=== PATIENT | female | born 1955 | race Caucasian/White ===

== ENCOUNTER 2017-01-22 16:03 | Inpatient (IN) ==
[2017-01-22] MEDS ORDERED: FUROSEMIDE 100 MG/10 ML VIAL IV STA (16:38)
[2017-01-22] MEDS ORDERED: methylPREDNISolone SOD SUC 125 MG/2 ML VIAL IV STA (16:38)
--- NOTE | 2017-01-22 16:50 | Emergency Department Note ---
Brandy Contreras Kasabria, am scribing for, and in the presence of, Gaudencio Pradhan MD 16:47. Carolynn Contreras Charles R, MD, personally performed the services described in this documentation, ascribed by Albina Nava in my presence, and it is both accurate and complete 650 . Arrival - Arrival Chief Complaint: Shortness of Breath Stated Complaint: SOB ED Nursing Triage Note: Brought in by EMS c/o SOB-onset one week ago. Patient was transferred from [facility] for further evaluation of CHF. Mode of Arrival: Stretcher Limitations: No Limitations Source: Patient Time Seen by Provider: 01/22/17 16:17 - History of Present Illness HPI Narrative: This is a 61 y/o white female presenting to the ED with c/o SOB that onset one week ago. Pt was transferred to the ED from [facility] for further evaluation for CHF. Pt's potassium levels are elevated. She has a PMHX of sleep apnea and is noncompliant with her C pap machine, VA, HTN, COPD, thyroid disorder, and pacemaker. Pt has a social history of smoking. Pt's states she has been confused. She denies nausea, vomiting, diarrhea, abdominal pain, back pain, and dysuria. Pt is falling asleep while talking to us due to her sleep apnea. Consistency: constant Severity: moderate Date of Last Menstrual Period: hysterectomy Allergies/Adverse Reactions: Allergies Allergy/AdvReac Type Severity Reaction Status Date / Time aspirin Allergy Unknown/Unable Verified 01/22/17 16:20 to obtain clarithromycin [From Biaxin] Allergy Unknown/Unable Verified 01/22/17 16:20 to obtain Review of System - Review of System 12 point system: reviewed and no additional remarkable complaints except as stated - Review of System Constitutional: Absent: chills, fever, weakness Eyes: Absent: vision change Head/Ears/Nose/Throat: Absent: nasal drainage Respiratory: Present: wheezing Cardiovascular: Present: dyspnea on exertion, orthopnea, edema. Absent: chest pain, syncope Gastrointestinal: Absent: abdominal pain, nausea, vomiting Genitourinary female: Absent: dysuria Musculoskeletal: Absent: arm pain, back pain, leg pain, neck pain Skin: Absent: rash Neurological: Present: confusion. Absent: headache, weakness, vertigo Psychiatric: Absent: anxiety Endocrine: Absent: fatigue Hematological/Lymphatic: Absent: easy bleeding Allergic/Immunologic: Absent: facial swelling Medical,Surgical,& Family Hx - Medical History Cardio: History of: CHF, Hypertension, Pacemaker Endocrine: History of: Thyroid Disorder Respiratory: History of: COPD, Obstructive Sleep Apnea - Social History Smoking Status: Current every day smoker Frequency of Alcohol Use: None Type of Drug Use: None Exam Vital Signs: Vital Signs Temperature 98.2 F 01/22/17 16:13 Pulse Rate 63 01/22/17 16:13 Respiratory Rate 19 01/22/17 16:13 Blood Pressure 117/61 01/22/17 16:13 O2 Sat by Pulse Oximetry 96 01/22/17 16:13 - General General appearance: alert, in distress (mild ), obese (morbidly ), other (poor hygiene; confused ) - Head Head exam: Present: atraumatic, normocephalic, normal inspection - Eye Eye exam: Present: normal appearance, PERRL, EOMI - ENT ENT exam: Present: normal exam, normal oropharynx, mucous membranes moist, TM's normal bilaterally, normal external ear exam - Neck Neck exam: Present: full ROM, trachea midline, other ([place] syndrome ). Absent : normal inspection, tenderness - Chest Chest inspection: Present: normal inspection, symmetric chest wall rise. Absent : tenderness - Respiratory Respiratory exam: Present: rales, wheezes, other (decreased breath sounds; sleep apnea). Absent: normal lung sounds bilaterally - Cardiovascular Cardiovascular exam: Present: normal rhythm, bradycardia, normal heart sounds. Absent: regular rate - Abdominal Exam Abdominal exam: Present: soft, normal bowel sounds. Absent: distention, tenderness - Extremities Exam Extremities exam: Present: full ROM, normal capillary refill, pedal edema (+2 bilaterally to lower extremities). Absent: normal inspection, tenderness, calf tenderness - Back Exam Back exam: Present: normal inspection, full ROM. Absent: tenderness - Neurological Exam Neurological exam: Present: alert, oriented X3, CN II-XII intact, normal gait, reflexes normal - Psychiatric Psychiatric exam: Present: normal affect, normal mood - Skin Skin exam: Present: warm, dry, intact, normal color. Absent: rash Course - Consultations Consultation #1: Hospitalist will admit patient Time: 16:48 Results - Labs Lab Results: I have reviewed the patients labs Labs: All labs from previous facility reviewed Critical Care Time Critical Care Time: Yes Total Critical Care Time: 60 Disposition Clinical Impression: Congestive heart failure, Hyperkalemia, Renal insufficiency, Morbid obesity, Pickwickian syndrome, Obstructive sleep apnea, Elevated troponin, Hypoventilation syndrome, Confusion, Increased somnolence Case discussed with: patient, patient's family Disposition: Still a Patient Condition: Guarded Time of Disposition: 16:49
[2017-01-22] MEDS ORDERED: ALBUTEROL 2.5 MG/3 ML NEB RESP TX SCH (17:00)
[2017-01-22 17:08] LABS: ABG Base Excess -2.5 MMOL/L (-2.5-2.5); ABG HCO3 22.3 MMOL/L (20-26); ABG Oxygen Saturation 96.1 % (95-100); ABG PO2 91.1 MM HG (80-95); ABG TCO2 26.9 MMOL/L (23-27)
--- NOTE | 2017-01-22 17:12 | XRay Report ---
Referring Physician: Gaudencio Pradhan Exam: XR chest 1V portable Date: January 22, 2017 at 4:46 PM Reason: Shortness of breath Comparison: Chest one view portable January 22, 2017 at 12:12 PM Findings: The cardiac silhouette is again enlarged, and a cardiac pacing device is in place. There is persistent elevation of the right hemidiaphragm. The interstitial markings are diffusely prominent bilaterally, and there are scattered opacities within both lungs. This is most consistent with pulmonary edema. Pneumonia is also in the differential but is felt less likely. No pneumothorax is identified, but there is likely mild bilateral pleural fluid. No acute osseous process is seen. Impression: 1. Cardiomegaly. 2. The interstitial markings are diffusely prominent, and there are scattered opacities within both lungs. This likely represents pulmonary edema, but other considerations include pneumonia. Mild bilateral pleural fluid is also suspected. PROCEDURE INTERPRETED AT [facility] DEPARTMENT OF RADIOLOGY Final Report Signed by: Dr. Jeanette Soliz
[2017-01-22 17:16] LABS: ABG PCO2 83.2 MM HG (35-48)
[2017-01-22 17:25] LABS: Basophils % 0.2 % (0.0-0.8); Eosinophils # 0.1 10*3/uL (0.0-0.87); Eosinophils % 0.3 % (0.00-10.9); Immature Granulocytes % 1.4 %; Immature Granulocytes Absolute 0.25 #; Lymphocytes # 3.5 10*3/uL (1.4-4.0); Lymphocytes % 20.3 % (21.3-54.2); Mean Corpuscular Hemoglobin 27 PG (27-34); Mean Corpuscular Volume 90.1 FL (87-102); Mean Platelet Volume 9.6 FL (9.6-12.0); Monocytes # 1.2 10*3/uL (0.11-0.8); Monocytes % 6.9 % (1.7-12.7); NRBC # 0.13 10*3/uL; Neutrophils # 12.4 10*3/uL (1.4-7.4); Neutrophils % 70.9 % (38.7-73.9); Platelet Count 164 T/CUMM (130-400); Red Blood Count 5.15 MC/CUMM (3.8-5.5); Red Cell Distribution Width 18.4 % (9.3-17.3); White Blood Count 17.5 T/CUMM (4-12)
[2017-01-22 17:32] LABS: Hematocrit 46.4 VOL% (35.7-47.0)
[2017-01-22] MEDS ORDERED: FUROSEMIDE 40 MG/4 ML VIAL ONE (17:35)
[2017-01-22] MEDS ORDERED: methylPREDNISolone SOD SUC 125 MG/2 ML VIAL ONE (17:35)
[2017-01-22] MEDS ORDERED: FUROSEMIDE 20 MG/2 ML VIAL ONE (17:35)
[2017-01-22] MEDS ORDERED: ENOXAPARIN 100 MG/ML SYRINGE SUBCUT STA (17:40)
[2017-01-22] MEDS ORDERED: ENOXAPARIN 100 MG/ML SYRINGE SUBCUT ONE (17:43)
[2017-01-22] MEDS ORDERED: ENOXAPARIN 60 MG/0.6 ML SYRINGE ONE (17:47)
[2017-01-22 17:57] LABS: Albumin 3.1 G/DL (3.4-5.0); Bilirubin,Total 0.5 MG/DL (0.2-1.0); Calcium 8.5 MG/DL (8.5-10.1); Magnesium 2.2 MG/DL (1.8-2.4); Osmolality,Calculated 273.2 MOS/KG (273-304); Potassium 5.9 MMOL/L (3.5-5.1); Total Protein 6.6 G/DL (6.4-8.3)
[2017-01-22 18:02] LABS: Troponin I Only 0.199 NG/ML (0.00-0.045)
[2017-01-22] MEDS ORDERED: ALBUTEROL 2.5 MG/3 ML NEB RESP TX PRN (18:26)
[2017-01-22] MEDS ORDERED: ONDANSETRON 4 MG/2 ML VIAL IV PRN (18:26)
[2017-01-22] MEDS ORDERED: MAGNESIUM SULF RIDER 2 GM in PREMIX 1 EACH IV PRN (18:29)
[2017-01-22] MEDS ORDERED: MAGNESIUM SULF RIDER 4 GM in PREMIX 1 EACH IV PRN (18:29)
[2017-01-22] MEDS ORDERED: clonazePAM 0.5 MG TABLET PO PRN (18:34)
--- NOTE | 2017-01-22 18:52 | Hospitalist History & Physical ---
Assessment and Plan (1) Cellulitis Status: Acute Current Visit: Yes (2) Congestive heart failure Status: Acute Current Visit: Yes (3) Hyperkalemia Status: Acute Current Visit: Yes (4) Pickwickian syndrome Status: Acute Current Visit: Yes (5) Elevated troponin Status: Acute Current Visit: Yes (6) Hypoventilation syndrome Status: Acute Current Visit: Yes (7) Respiratory failure Status: Acute Assessment and plan: Plan for this patient will be admission to ICU. We will are attempting to use BiPAP initially on this patient but she might require intubation during the night. We will recheck his ABG at 10 PM. She has been given IV Lasix that will help bring down her potassium she is on potassium supplement at home. She is acidotic from the respiratory acidosis once that is corrected her potassium should shift in the sales. Gonorrhoeae P some cardiac enzymes. She does have a mild bump in her enzymes initially. Go to hold her blood pressure medicines for now. She has been hypotensive in the ER. Going to start her on IV antibiotics for the cellulitis and possible pneumonia. Consult pulmonary for respiratory failure and consult cardiology for her heart failure Current Visit: Yes History of Present Illness Chief complaint: Shortness of breath History of present illness: Ms. Norton is a 61 year old female with past medical history significant for pacemaker, hypertension, obstructive sleep apnea and some unspecified psychiatric illness who presents as a transfer with shortness of breath. Discussed the case with her and he reports that she been short of breath [address] Crow she on [facility] and had an appointment to go see him last week but was too sick to make it to her doctor's appointment. Apparently patient is stubborn and she has been getting significantly short of breath with the least exertion. Patient is morbidly obese with weighing 155 kg and failed today and her family could not get up. They called EMS and decided to take her to the hospital for further evaluation. Once that the outside facility they decided to transfer to our facility for higher level of care. I saw patient in the ER she is already on a BiPAP and seems to be fairly stable at this time. My concern for her is that she will require met invasive in ventilation later this evening. Home Medications Medication Instructions Recorded Confirmed Type Albuterol Inhaler [Proventil 2 puff INH Q6H PRN 01/22/17 01/22/17 History Inhaler] Asenapine Maleate [Saphris] 10 mg PO BID 01/22/17 01/22/17 History Benztropine Mesylate 2 mg PO BEDTIME 01/22/17 01/22/17 History Fluticasone/Salmeterol 250-50 1 puff INH BID 01/22/17 01/22/17 History [Advair 250-50] Gabapentin [Gabapentin] 10 mg PO TID 01/22/17 01/22/17 History Levothyroxine Tab [Synthroid Tab] 150 mcg PO DAILY@0700 01/22/17 01/22/17 History Losartan/Hydrochlorothiazide 1 each PO DAILY 01/22/17 01/22/17 History [Losartan-Hctz 100-25 mg Tab] Potassium Chloride 20 meq PO TID 01/22/17 01/22/17 History Pramipexole [Mirapex] 0.25 mg PO BEDTIME 01/22/17 01/22/17 History Pravastatin [Pravachol] 20 mg PO BEDTIME 01/22/17 01/22/17 History Trazodone HCl 100 mg PO BEDTIME 01/22/17 01/22/17 History clonazePAM [Clonazepam] 0.5 mg PO BID PRN 01/22/17 01/22/17 History lamoTRIgine [Lamotrigine Tab] 50 mg PO BEDTIME 01/22/17 01/22/17 History risperiDONE [Risperidone] 2 mg PO QAM 01/22/17 01/22/17 History Allergies Allergy/AdvReac Type Severity Reaction Status Date / Time aspirin Allergy Unknown/Unable Verified 01/22/17 16:20 to obtain clarithromycin [From Biaxin] Allergy Unknown/Unable Verified 01/22/17 16:20 to obtain Medical,Surgical,& Family Hx - Medical History Cardio: History of: CHF, Hypertension, Pacemaker Endocrine: History of: Thyroid Disorder Respiratory: History of: COPD, Obstructive Sleep Apnea - Surgical History Reproductive Surgeries: Surgical HX of;: Hysterectomy Orthopedic Surgeries: Surgical HX of;: Orthopedic Surgery - Family History Family History: Reports;: Family Diabetes, Family Heart Disease - Social History Smoking Status: Current every day smoker Frequency of Alcohol Use: None Type of Drug Use: None ROS unobtainable: due to delirium Exam - Constitutional Vitals: Period Temp Pulse Resp BP Sys/Wisdom Pulse Ox Last 24 Hr 72 20 General appearance: mild distress, morbidly obese - Head Head exam: Present: normal inspection - Eye Eye exam: Present: EOMI Pupils: Present: FARA - ENT ENT exam: Present: other (BiPAP mask in place) - Neck Neck exam: Present: normal inspection - Respiratory Respiratory exam: Present: rales, wheezes - Cardiovascular Cardiovascular exam: Present: regular rate and rhythm - GI/Abdominal GI/Abdominal exam: Present: normal bowel sounds - Extremities Exam Extremities exam: Present: normal inspection - Back Exam Back exam: Present: normal inspection - Neurological Exam Neurological exam: Present: altered - Skin Skin exam: Present: erythema (Cellulitic type changes in her folds of skin on her legs) Results - Labs CBC & BMP: 01/22/17 17:08 01/22/17 17:08
[2017-01-22] MEDS: ALBUTEROL/IPRATROPIUM 3 ML NEB RESP TX SCH (19:38)
[2017-01-22 20:13] LABS: ABG Base Excess -4.6 MMOL/L (-2.5-2.5); ABG HCO3 20.5 MMOL/L (20-26); ABG Oxygen Saturation 92.2 % (95-100); ABG PO2 75.9 MM HG (80-95); ABG TCO2 28.6 MMOL/L (23-27); Allen Test Positive; Pt O2 Delivery Device BIPAP
[2017-01-22 20:17] LABS: ABG PH 7.066 (7.35-7.45)
[2017-01-22] MEDS ORDERED: ETOMIDATE 20 MG/10 ML VIAL IV ONE ×2 (20:40→21:10)
[2017-01-22] MEDS ORDERED: SUCCINYLCHOLINE 200 MG/10 ML VIAL ONE (20:41)
[2017-01-22] MEDS ORDERED: PRAMIPEXOLE 0.25 MG TABLET PO SCH (21:00)
[2017-01-22] MEDS ORDERED: NON-FORMULARY MEDICATION (Asenapine Maleate [Saphris] 10 MG) PO SCH (21:00)
[2017-01-22] MEDS ORDERED: traZODone 50 MG TABLET PO SCH (21:00)
[2017-01-22] MEDS ORDERED: CALCIUM CHLORIDE 1,000 MG in SODIUM CHLORIDE 0.9% 100 ML IV ONE (21:02)
[2017-01-22] MEDS ORDERED: CALCIUM CHLORIDE 1,000 MG/10 ML SYRINGE IV ONE ×2 (21:04→21:05)
[2017-01-22] MEDS ORDERED: VECURONIUM 10 MG VIAL IV ONE ×2 (21:06→21:10)
--- NOTE | 2017-01-22 21:11 | Event Note ---
It became apparent on a repeat ABG the patient was continuing to retain CO2. Patient was intubated with the etomidate and the aid of a glide scope. Patient tolerated the procedure without issue. ABGs will be ordered in 30 minutes. Repeat chest x-ray.
[2017-01-22] MEDS: PIPERACILLIN/TAZOBACTAM 3,375 MG in SODIUM CHLORIDE 0.9% 100 ML IV SCH (21:35)
--- NOTE | 2017-01-22 21:45 | XRay Report ---
Referring Physician: Daniel Asher Exam: XR chest 1V portable Date: January 22, 2017 at 9:12 PM Reason: Patient on ventilator, intubated Comparison: Chest one view portable January 22, 2017 at 4:46 PM Findings: An endotracheal tube is in place with its distal tip at the level of the aortic arch, projecting 3 cm above the rhea. A feeding tube and cardiac pacing device are also again in place. The cardiac silhouette is again enlarged, and there is persistent mild elevation of the right hemidiaphragm. The interstitial markings are diffusely prominent, and there are mild perihilar and bibasilar opacities. This likely represents pulmonary edema and atelectasis, but pneumonia is not excluded. No pneumothorax is identified, but there may be mild bilateral pleural fluid. The osseous structures appear stable. Impression: There has been interval placement of an endotracheal tube and feeding tube. The study is otherwise similar to before. PROCEDURE INTERPRETED AT [facility] DEPARTMENT OF RADIOLOGY Final Report Signed by: Dr. Jeanette Soliz
[2017-01-22 21:57] LABS: ABG Base Excess -3.3 MMOL/L (-2.5-2.5); ABG HCO3 21.7 MMOL/L (20-26); ABG Oxygen Saturation 97.3 % (95-100); ABG PO2 92.1 MM HG (80-95); ABG TCO2 24.2 MMOL/L (23-27)
[2017-01-22 21:59] LABS: ABG PCO2 69.3 MM HG (35-48); ABG PH 7.203 (7.35-7.45)
[2017-01-22] MEDS: PROPOFOL 1,000 MG/100 ML BOTTLE IV SCH ×2 (21:59→23:22)
[2017-01-22] MEDS: GABAPENTIN 100 MG CAPSULE PO SCH (22:36)
[2017-01-22] MEDS: lamoTRIgine 25 MG TABLET PO SCH (22:36)
[2017-01-22] MEDS: BENZTROPINE 1 MG TABLET PO SCH (22:36)
[2017-01-22 23:02] LABS: Troponin I Only 0.181 NG/ML (0.00-0.045)
[2017-01-23] MEDS: ALBUTEROL/IPRATROPIUM 3 ML NEB RESP TX SCH ×4 (01:30→19:32)
[2017-01-23] MEDS: PROPOFOL 1,000 MG/100 ML BOTTLE IV SCH ×11 (01:35→23:38)
[2017-01-23 03:24] LABS: ABG Base Excess -0.8 MMOL/L (-2.5-2.5); ABG HCO3 23.6 MMOL/L (20-26); ABG Oxygen Saturation 91.7 % (95-100); ABG PCO2 53.5 MM HG (35-48); ABG PH 7.306 (7.35-7.45); ABG TCO2 23.5 MMOL/L (23-27)
[2017-01-23] MEDS: PIPERACILLIN/TAZOBACTAM 3,375 MG in SODIUM CHLORIDE 0.9% 100 ML IV SCH ×3 (03:46→21:44)
[2017-01-23 06:03] LABS: Basophils % 0.2 % (0.0-0.8); Eosinophils % 0.1 % (0.00-10.9); Hematocrit 44.8 VOL% (35.7-47.0); Immature Granulocytes % 1.5 %; Immature Granulocytes Absolute 0.26 #; Lymphocytes # 1.5 10*3/uL (1.4-4.0); Lymphocytes % 8.9 % (21.3-54.2); Mean Corpuscular HGB Conc 30.1 GM/DL (32-36); Mean Corpuscular Hemoglobin 27 PG (27-34); Mean Corpuscular Volume 89.1 FL (87-102); Mean Platelet Volume 10.1 FL (9.6-12.0); Monocytes # 0.6 10*3/uL (0.11-0.8); Monocytes % 3.3 % (1.7-12.7); NRBC # 0.14 10*3/uL; Neutrophils # 14.5 10*3/uL (1.4-7.4); Platelet Count 170 T/CUMM (130-400); Red Blood Count 5.03 MC/CUMM (3.8-5.5); Red Cell Distribution Width 18.1 % (9.3-17.3); White Blood Count 16.8 T/CUMM (4-12)
[2017-01-23 06:10] LABS: Hemoglobin 13.6 GM/DL (12.0-16.0)
[2017-01-23 06:38] LABS: Troponin I Only 0.207 NG/ML (0.00-0.045)
[2017-01-23 06:43] LABS: Albumin 2.5 G/DL (3.4-5.0); Bilirubin,Total 1.4 MG/DL (0.2-1.0); Calcium 8.6 MG/DL (8.5-10.1); Osmolality,Calculated 273.4 MOS/KG (273-304); Total Protein 5.8 G/DL (6.4-8.3)
--- NOTE | 2017-01-23 06:47 | EKG Report ---
Stationary ECG Study [facility] ER Test Date: 01/22/2017 4:14:12 PM Pat Name: MICKIE RODAS Department: Room: 124 Gender: F Retail Maintenance Technician: : 1955 Requested by: Gaudencio Rodriguez Order Number: [id number] Reading MD: GRICELDA OTT Intervals [place] Rate: 61 P: 134 NV: 188 QRS: 139 QRSD: 98 T: 34 QT: 419 QTc: 423 Interpretive Statements ELECTRONIC ATRIAL PACEMAKER at 61 bpm POSSIBLE RIGHT VENTRICULAR HYPERTROPHY ANTEROSEPTAL MYOCARDIAL INFARCTION, PROBABLY OLD Electronically Signed On 01-26-17 16:12:25 CDT by GRICELDA OTT [email or web address]
--- NOTE | 2017-01-23 07:42 | XRay Report ---
XR chest 1V portable Indication: SOB Comparison: Chest x-ray dated January 22, 2017 at 9:18 PM Technique: Single frontal view of the chest Findings: Endotracheal tube stable in positioning. Cardiac pacemaker apparatus again noted. Continued cardiomegaly. Bibasilar atelectasis/consolidation, left greater than right, and small left pleural fluid appear mildly progressed from prior examination. Osseous and surrounding soft tissue structures appear grossly unchanged. IMPRESSION: As above. PROCEDURE INTERPRETED AT [facility] DEPARTMENT OF RADIOLOGY Final Report Signed by: Dr Joaquim Mendoza
--- NOTE | 2017-01-23 08:22 | Cardiology Consult Note ---
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 Crow in [place] Ms. Norton is a 61 year old female has been followed by Dr. Grimes in the remote past. Patient has not been seen by Dr. Grimes in several years. Patient is intubated and sedated in the CCU. Unable to obtain review of systems. Majority of this information was received from medical personnel and patient's electronic medical record. Patient presented to [facility] last night with complaints of shortness of breath. Subsequently , she required intubation. Patient's past medical history includes hypertension , hypothyroidism, dyslipidemia, COPD, obstructive sleep apnea (noncompliant with CPAP machine) sick sinus syndrome (have pacemaker placed in 2002, generator changed in 2013), morbid obesity and smoker. Patient underwent left heart catheterization in [address] Grimes. At that time, she had a normal LV systolic function without wall motion abnormalities, ejection fraction of 60% . Mild pulmonary hypertension with PA pressure of 37. Mildly elevated right sided filling pressure and elevated left-sided filling pressure, LVEDP of 27. Her coronary arteries were free of atherosclerosis. Patient presented to the emergency room with complaints of shortness of breath 2 weeks. This has progressed over the past several weeks. CC: Radha Castellanos MD - Home Medications and Allergies Home Medications: Home Medications Medication Instructions Recorded Confirmed Type Albuterol Inhaler [Proventil 2 puff INH Q6H PRN 01/22/17 01/22/17 History Inhaler] Asenapine Maleate [Saphris] 10 mg PO BID 01/22/17 01/22/17 History Benztropine Mesylate 2 mg PO BEDTIME 01/22/17 01/22/17 History Fluticasone/Salmeterol 250-50 1 puff INH BID 01/22/17 01/22/17 History [Advair 250-50] Gabapentin [Gabapentin] 10 mg PO TID 01/22/17 01/22/17 History Levothyroxine Tab [Synthroid Tab] 150 mcg PO DAILY@0700 01/22/17 01/22/17 History Losartan/Hydrochlorothiazide 1 each PO DAILY 01/22/17 01/22/17 History [Losartan-Hctz 100-25 mg Tab] Potassium Chloride 20 meq PO TID 01/22/17 01/22/17 History Pramipexole [Mirapex] 0.25 mg PO BEDTIME 01/22/17 01/22/17 History Pravastatin [Pravachol] 20 mg PO BEDTIME 01/22/17 01/22/17 History Trazodone HCl 100 mg PO BEDTIME 01/22/17 01/22/17 History clonazePAM [Clonazepam] 0.5 mg PO BID PRN 01/22/17 01/22/17 History lamoTRIgine [Lamotrigine Tab] 50 mg PO BEDTIME 01/22/17 01/22/17 History risperiDONE [Risperidone] 2 mg PO QAM 01/22/17 01/22/17 History Allergies/Adverse Reactions: Allergies Allergy/AdvReac Type Severity Reaction Status Date / Time aspirin Allergy Unknown/Unable Verified 01/22/17 16:20 to obtain clarithromycin [From Biaxin] Allergy Unknown/Unable Verified 01/22/17 16:20 to obtain Medical,Surgical,& Family Hx - Medical History Cardio: History of: CHF, Hypertension, Pacemaker Psychological: History of: Bipolar Disorder, Depression, Psychiatric/Substance Abuse Tx (Past for drugs after son's ) Endocrine: History of: Thyroid Disorder No history of: Diabetes Mellitus (IDDM), Diabetes Mellitus (NIDDM) Respiratory: History of: COPD, Obstructive Sleep Apnea Renal: Comment Only: Renal Failure (Acute renal due to antibiotic) Musculoskeletal: History of: Musculoskeletal Problems (Degenerative spur disorder) Other: History of: Anaphylaxis (Aspirin) - Surgical History Cardiac Surgeries: Sugical HX of: Cardiac Catheterization Neurologic Surgeries: Patient denies: Neurologic Surgery Reproductive Surgeries: Surgical HX of;: Hysterectomy Orthopedic Surgeries: Surgical HX of;: Orthopedic Surgery (Ankle sx) - Family History Family History: Reports;: Family Diabetes, Family Heart Disease - Social History Smoking Status: Current every day smoker Frequency of Alcohol Use: None Type of Drug Use: None Physical Examination Vital Signs Temp Pulse Resp BP Pulse Ox 98.2 F 63 19 117/61 96 01/22/17 16:13 01/22/17 16:13 01/22/17 16:13 01/22/17 16:13 01/22/17 16:13 Result/EKG - Labs CBC & BMP: 01/23/17 04:56 01/23/17 04:56 Labs: Laboratory Results - last 24 hr 01/22/17 01/22/17 01/22/17 17:08 17:08 17:08 WBC 17.5 H RBC 5.15 Hgb 14.0 Hct 46.4 MCV 90.1 MCH 27 MCHC 30.0 L RDW 18.4 H Plt Count 164 MPV 9.6 Neut % (Auto) 70.9 Lymph % (Auto) 20.3 L [place] % (Auto) 6.9 Eos % (Auto) 0.3 Baso % (Auto) 0.2 Neut # (Auto) 12.4 H Lymph # (Auto) 3.5 [place] # (Auto) 1.2 H Eos # (Auto) 0.1 Baso # (Auto) 0.0 Immature Gran % 1.4 Nucleated RBC % 0.7 Immature Gran # 0.25 Nucleated RBCs # 0.13 INR 1.0 PT Patient/Control Mix 11.0 ABG pH ABG pCO2 ABG pO2 ABG HCO3 ABG Total CO2 ABG O2 Saturation ABG Base Excess FiO2 Sodium 134 L Potassium 5.9 H Chloride 99 Carbon Dioxide 29 Anion Gap 11.9 BUN 33 H Creatinine 1.80 H GFR Calculation 43 BUN/Creatinine Ratio 18.00 Glucose 87 Calculated Osmolality 273.2 Calcium 8.5 Magnesium 2.2 Total Bilirubin 0.50 AST 14 ALT 15 Alkaline Phosphatase 150 H Total Creatine Kinase CK-MB (CK-2) Troponin I 0.199 H B-Natriuretic Peptide Total Protein 6.6 Albumin 3.1 L Globulin 3.5 Albumin/Globulin Ratio 0.8 L 01/22/17 01/22/17 01/22/17 17:08 20:15 21:48 WBC RBC Hgb Hct MCV MCH MCHC RDW Plt Count MPV Neut % (Auto) Lymph % (Auto) [place] % (Auto) Eos % (Auto) Baso % (Auto) Neut # (Auto) Lymph # (Auto) [place] # (Auto) Eos # (Auto) Baso # (Auto) Immature Gran % Nucleated RBC % Immature Gran # Nucleated RBCs # INR PT Patient/Control Mix ABG pH 7.066 L* D 7.203 L* D ABG pCO2 107.0 H* 69.3 H* ABG pO2 75.9 L 92.1 ABG HCO3 20.5 21.7 ABG Total CO2 28.6 H 24.2 ABG O2 Saturation 92.2 L 97.3 ABG Base Excess -4.6 L -3.3 L FiO2 45.00 Sodium Potassium Chloride Carbon Dioxide Anion Gap BUN Creatinine GFR Calculation BUN/Creatinine Ratio Glucose Calculated Osmolality Calcium Magnesium Total Bilirubin AST ALT Alkaline Phosphatase Total Creatine Kinase CK-MB (CK-2) Troponin I B-Natriuretic Peptide 410 H Total Protein Albumin Globulin Albumin/Globulin Ratio 01/22/17 01/23/17 01/23/17 21:57 03:16 04:56 WBC 16.8 H RBC 5.03 Hgb 13.6 Hct 44.8 MCV 89.1 MCH 27 MCHC 30.1 L RDW 18.1 H Plt Count 170 MPV 10.1 Neut % (Auto) 86.0 H Lymph % (Auto) 8.9 L [place] % (Auto) 3.3 Eos % (Auto) 0.1 Baso % (Auto) 0.2 Neut # (Auto) 14.5 H Lymph # (Auto) 1.5 [place] # (Auto) 0.6 Eos # (Auto) 0.0 Baso # (Auto) 0.0 Immature Gran % 1.5 Nucleated RBC % 0.8 Immature Gran # 0.26 Nucleated RBCs # 0.14 INR PT Patient/Control Mix ABG pH 7.306 L ABG pCO2 53.5 H ABG pO2 60.0 L ABG HCO3 23.6 ABG Total CO2 23.5 ABG O2 Saturation 91.7 L ABG Base Excess -0.8 FiO2 Sodium Potassium Chloride Carbon Dioxide Anion Gap BUN Creatinine GFR Calculation BUN/Creatinine Ratio Glucose Calculated Osmolality Calcium Magnesium Total Bilirubin AST ALT Alkaline Phosphatase Total Creatine Kinase 73 CK-MB (CK-2) 3.8 H Troponin I 0.181 H B-Natriuretic Peptide Total Protein Albumin Globulin Albumin/Globulin Ratio 01/23/17 01/23/17 04:56 04:56 WBC RBC Hgb Hct MCV MCH MCHC RDW Plt Count MPV Neut % (Auto) Lymph % (Auto) [place] % (Auto) Eos % (Auto) Baso % (Auto) Neut # (Auto) Lymph # (Auto) [place] # (Auto) Eos # (Auto) Baso # (Auto) Immature Gran % Nucleated RBC % Immature Gran # Nucleated RBCs # INR PT Patient/Control Mix ABG pH ABG pCO2 ABG pO2 ABG HCO3 ABG Total CO2 ABG O2 Saturation ABG Base Excess FiO2 Sodium 133 L Potassium 6.0 H* Chloride 99 Carbon Dioxide 22 Anion Gap 18.0 H BUN 35 H Creatinine 1.60 H GFR Calculation 55 BUN/Creatinine Ratio 21.00 H Glucose 94 Calculated Osmolality 273.4 Calcium 8.6 Magnesium Total Bilirubin 1.40 H AST 27 ALT 15 Alkaline Phosphatase 131 H Total Creatine Kinase 55 D CK-MB (CK-2) 3.2 Troponin I 0.207 H B-Natriuretic Peptide Total Protein 5.8 L Albumin 2.5 L Globulin 3.3 Albumin/Globulin Ratio 0.7 L
--- NOTE | 2017-01-23 08:28 | Pulmonology Consult Note ---
Assessment and Plan (1) Congestive heart failure Status: Acute Assessment and plan: The patient likely has a cardiomyopathy and may have some mild heart failure. Current Visit: Yes (2) Renal insufficiency Status: Acute Assessment and plan: Patient has a creatinine of 1.6 Current Visit: Yes (3) Morbid obesity Status: Acute Assessment and plan: The patient has a BMI of 75 Current Visit: Yes (4) Pickwickian syndrome Status: Acute Assessment and plan: The patient likely has chronic CO2 retention. Current Visit: Yes (5) Respiratory failure Status: Acute Assessment and plan: Patient comes in with respiratory failure with both hypoxemia and CO2 retention. She is now on the ventilator at present. Current Visit: Yes (6) COPD (chronic obstructive pulmonary disease) Status: Acute Assessment and plan: Patient is a smoker and is wheezing and likely has significant COPD. Will continue treatment. Current Visit: Yes History of Present Illness Chief complaint: Ventilator management History of present illness: Ms. Norton is a 61 year old white female that came in yesterday with respiratory distress and respiratory failure and is now on the ventilator in the ICU. She has morbid obesity with a history of obstructive sleep apnea along with hypertension. She has a pacemaker and likely has some cardiac dysfunction. She reportedly has a history of some psychiatric problems also. She was placed on BiPAP but did not do well and is now intubated. She does have relative hypoxemia and some wheezing. She apparently is a smoker. She is sedated on the ventilator at present. She did have significant CO2 retention when she first came in. Home Medications Medication Instructions Recorded Confirmed Type Albuterol Inhaler [Proventil 2 puff INH Q6H PRN 01/22/17 01/22/17 History Inhaler] Asenapine Maleate [Saphris] 10 mg PO BID 01/22/17 01/22/17 History Benztropine Mesylate 2 mg PO BEDTIME 01/22/17 01/22/17 History Fluticasone/Salmeterol 250-50 1 puff INH BID 01/22/17 01/22/17 History [Advair 250-50] Gabapentin [Gabapentin] 10 mg PO TID 01/22/17 01/22/17 History Levothyroxine Tab [Synthroid Tab] 150 mcg PO DAILY@0700 01/22/17 01/22/17 History Losartan/Hydrochlorothiazide 1 each PO DAILY 01/22/17 01/22/17 History [Losartan-Hctz 100-25 mg Tab] Potassium Chloride 20 meq PO TID 01/22/17 01/22/17 History Pramipexole [Mirapex] 0.25 mg PO BEDTIME 01/22/17 01/22/17 History Pravastatin [Pravachol] 20 mg PO BEDTIME 01/22/17 01/22/17 History Trazodone HCl 100 mg PO BEDTIME 01/22/17 01/22/17 History clonazePAM [Clonazepam] 0.5 mg PO BID PRN 01/22/17 01/22/17 History lamoTRIgine [Lamotrigine Tab] 50 mg PO BEDTIME 01/22/17 01/22/17 History risperiDONE [Risperidone] 2 mg PO QAM 01/22/17 01/22/17 History Allergies Allergy/AdvReac Type Severity Reaction Status Date / Time aspirin Allergy Unknown/Unable Verified 01/22/17 16:20 to obtain clarithromycin [From Biaxin] Allergy Unknown/Unable Verified 01/22/17 16:20 to obtain ROS unobtainable: due to endotracheal tube (She is unable to give history at present.) Exam (Pulmonay) H&P - Constitutional Vitals: Period Temp Pulse Resp BP Sys/Wisdom Pulse Ox Last 24 Hr 98.6 F-98.9 F 60-88 14-29 74-199/46-96 92-100 General appearance: no acute distress (She is sedated on the ventilator at present.), morbidly obese - Head Head exam: Present: normal inspection, normocephalic - Eye Eye exam: Present: EOMI. Absent: scleral icterus Pupils: Present: FARA - ENT ENT exam: Present: other (ET tube is in good position) - Neck Neck exam: Present: normal inspection. Absent: lymphadenopathy, thyromegaly - Respiratory Respiratory exam: Present: prolonged expiratory phase, rhonchi, wheezes - Cardiovascular Cardiovascular exam: Present: regular rate and rhythm, other (She has a paced rhythm). Absent: systolic murmur - GI/Abdominal GI/Abdominal exam: Present: normal bowel sounds, soft. Absent: organomegaly, tenderness - Extremities Exam Extremities exam: Present: other (She does have rather large extremities). Absent: calf tenderness, edema - Neurological Exam Neurological exam: Present: altered (She is sedated on the ventilator at present ) - Skin Skin exam: Present: warm, dry, erythema (She has some redness on her legs) Medical,Surgical,& Family Hx - Medical History Cardio: History of: CHF, Hypertension, Pacemaker Psychological: History of: Bipolar Disorder, Depression, Psychiatric/Substance Abuse Tx (Past for drugs after son's ) Endocrine: History of: Thyroid Disorder No history of: Diabetes Mellitus (IDDM), Diabetes Mellitus (NIDDM) Respiratory: History of: COPD, Obstructive Sleep Apnea Renal: Comment Only: Renal Failure (Acute renal due to antibiotic) Musculoskeletal: History of: Musculoskeletal Problems (Degenerative spur disorder) Other: History of: Anaphylaxis (Aspirin) - Surgical History Cardiac Surgeries: Sugical HX of: Cardiac Catheterization Neurologic Surgeries: Patient denies: Neurologic Surgery Reproductive Surgeries: Surgical HX of;: Hysterectomy Orthopedic Surgeries: Surgical HX of;: Orthopedic Surgery (Ankle sx) - Family History Family History: Reports;: Family Diabetes, Family Heart Disease - Social History Smoking Status: Current every day smoker Frequency of Alcohol Use: None Type of Drug Use: None Results - Labs CBC & BMP: 01/23/17 04:56 01/23/17 04:56 Labs: Her PO2 is 60 with a PCO2 of 53 and a pH of 7.3 now. Her PCO2 was 83 when she came in. - Diagnostic Findings Procedure: Chest x-ray: image reviewed by me, report reviewed by me (Chest x- ray shows cardiomegaly with a pacemaker. They may be minimal volume overload.)
[2017-01-23] MEDS: risperiDONE 1 MG TABLET PO SCH (09:20)
[2017-01-23] MEDS: LEVOTHYROXINE 150 MCG TABLET PO SCH (09:20)
[2017-01-23] MEDS: FUROSEMIDE 40 MG/4 ML VIAL IV SCH ×2 (09:20→17:05)
[2017-01-23] MEDS: GABAPENTIN 100 MG CAPSULE PO SCH ×3 (09:20→21:45)
--- NOTE | 2017-01-23 11:12 | Sleep Medicine Consult ---
Assessment and Plan (1) Obstructive sleep apnea Status: Acute Assessment and plan: Once this patient has had her acute illness treated, we will follow-up with her regarding her obstructive sleep apnea. Certainly with her obesity, she likely has a component of overlap syndrome with obstructive sleep apnea and obesity hypoventilation. We will need to reevaluate her. Thank you for this consult and the opportunity to participate in her care. Current Visit: Yes History of Present Illness Chief complaint: Obstructive sleep apnea History of present illness: Ms. Norton is a 61 year old female with a history of severe obstructive sleep apnea diagnosed by me in 2002 with an AHI 105.7. She underwent titration with CPAP and was placed on 9 cm of CPAP. She was followed up in June 2003 and was doing very well on CPAP at that time and was scheduled for follow-up the next year. She apparently was lost to follow-up. She was admitted on this occasion with acute and chronic respiratory failure and required intubation. Sleep medicine had been consulted for follow-up and further treatment of her obstructive sleep apnea. The patient is intubated and there is no family present to ask or inquire regarding her sleep. She is being followed by Dr. Eduardo from a pulmonary standpoint. Home Medications Medication Instructions Recorded Confirmed Type Albuterol Inhaler [Proventil 2 puff INH Q6H PRN 01/22/17 01/22/17 History Inhaler] Asenapine Maleate [Saphris] 10 mg PO BID 01/22/17 01/22/17 History Benztropine Mesylate 2 mg PO BEDTIME 01/22/17 01/22/17 History Fluticasone/Salmeterol 250-50 1 puff INH BID 01/22/17 01/22/17 History [Advair 250-50] Gabapentin [Gabapentin] 10 mg PO TID 01/22/17 01/22/17 History Levothyroxine Tab [Synthroid Tab] 150 mcg PO DAILY@0700 01/22/17 01/22/17 History Losartan/Hydrochlorothiazide 1 each PO DAILY 01/22/17 01/22/17 History [Losartan-Hctz 100-25 mg Tab] Potassium Chloride 20 meq PO TID 01/22/17 01/22/17 History Pramipexole [Mirapex] 0.25 mg PO BEDTIME 01/22/17 01/22/17 History Pravastatin [Pravachol] 20 mg PO BEDTIME 01/22/17 01/22/17 History Trazodone HCl 100 mg PO BEDTIME 01/22/17 01/22/17 History clonazePAM [Clonazepam] 0.5 mg PO BID PRN 01/22/17 01/22/17 History lamoTRIgine [Lamotrigine Tab] 50 mg PO BEDTIME 01/22/17 01/22/17 History risperiDONE [Risperidone] 2 mg PO QAM 01/22/17 01/22/17 History Allergies Allergy/AdvReac Type Severity Reaction Status Date / Time aspirin Allergy Unknown/Unable Verified 01/22/17 16:20 to obtain clarithromycin [From Biaxin] Allergy Unknown/Unable Verified 01/22/17 16:20 to obtain ROS unobtainable: due to endotracheal tube Exam (Pulmonay) H&P - Constitutional Vitals: Period Temp Pulse Resp BP Sys/Wisdom Pulse Ox Last 24 Hr 97.4 F-98.9 F 60-88 14-29 74-199/46-96 92-100 Exam: Morbidly obese. Pupils equal round reactive to light and accommodation. Oral endotracheal tube in place but on inspection she appears to have a class IV Mallampati exam. Her neck is large and supple without adenopathy. Chest with symmetrical breath sounds without wheeze or rhonchi. Cardiac exam reveals a regular rhythm without murmur or gallop. Abdomen obese nontender without palpable hepatosplenomegaly or mass. Extremities are without clubbing, cyanosis , but with a trace edema. Neurologically, she is sedated but responds to this painful stimuli. Medical,Surgical,& Family Hx - Medical History Cardio: History of: CHF, Hypertension, Pacemaker Psychological: History of: Bipolar Disorder, Depression, Psychiatric/Substance Abuse Tx (Past for drugs after son's ) Endocrine: History of: Thyroid Disorder No history of: Diabetes Mellitus (IDDM), Diabetes Mellitus (NIDDM) Respiratory: History of: COPD, Obstructive Sleep Apnea Renal: Comment Only: Renal Failure (Acute renal due to antibiotic) Musculoskeletal: History of: Musculoskeletal Problems (Degenerative spur disorder) Other: History of: Anaphylaxis (Aspirin) - Surgical History Cardiac Surgeries: Sugical HX of: Cardiac Catheterization Neurologic Surgeries: Patient denies: Neurologic Surgery Reproductive Surgeries: Surgical HX of;: Hysterectomy Orthopedic Surgeries: Surgical HX of;: Orthopedic Surgery (Ankle sx) - Family History Family History: Reports;: Family Diabetes, Family Heart Disease - Social History Smoking Status: Current every day smoker Frequency of Alcohol Use: None Type of Drug Use: None Results - Labs CBC & BMP: 01/23/17 04:56 01/23/17 04:56 Lab Results: I have reviewed the past 24 hour labs
[2017-01-23] MEDS ORDERED: SODIUM POLYSTYRENE SULFATE 15 GM/60 ML BOTTLE PO ONE ×2 (11:29→14:15)
[2017-01-23] MEDS: FLUCONAZOLE 200 MG TABLET PO SCH (11:42)
[2017-01-23] MEDS: methylPREDNISolone SOD SUC 40 MG/1 ML VIAL IV SCH ×2 (11:43→17:05)
[2017-01-23] MEDS ORDERED: DEXTROSE 50% 25 GM/50 ML VIAL IV PRN (12:50)
[2017-01-23] MEDS ORDERED: GLUCAGON 1 MG VIAL IM PRN (12:50)
[2017-01-23] MEDS: DESITIN 4OZ/NYSTATIN 15 GRAM MIXTURE PASTE TOP SCH ×2 (14:13→21:46)
--- NOTE | 2017-01-23 14:20 | Hospitalist Progress Note ---
Assessment and Plan (1) Respiratory failure Status: Acute Assessment and plan: multifactorial with copd, OHS, CHF, LISSETT, cont treatment with lasix, steroids, vent management by Dr. Eduardo good candidate for [facility] but bad insurance Current Visit: Yes (2) Cellulitis Status: Acute Assessment and plan: cont zosyn, check venous dopplers Current Visit: Yes (3) Congestive heart failure Status: Acute Assessment and plan: cont lasix 40 mg IV every 12 hours, echo Current Visit: Yes (4) Hyperkalemia Status: Acute Assessment and plan: kayexalate and monitor cr Current Visit: Yes (5) Renal insufficiency Status: Acute Assessment and plan: cont to monitor while on lasix Current Visit: Yes (6) Morbid obesity Status: Acute Assessment and plan: needs to lose weight Current Visit: Yes (7) Pickwickian syndrome Status: Acute Current Visit: Yes (8) Obstructive sleep apnea Status: Acute Assessment and plan: Dr. Guido will re-evaluate when extubated Current Visit: Yes (9) Elevated troponin Status: Acute Assessment and plan: probably due to chf exacerbation Current Visit: Yes (10) Hypoventilation syndrome Status: Acute Assessment and plan: due to morbid obesity Current Visit: Yes (11) COPD (chronic obstructive pulmonary disease) Status: Acute Assessment and plan: duoneb, steroids, zosyn Current Visit: Yes (12) Yeast infection involving the vagina and surrounding area Status: Acute Assessment and plan: diflucan daily Current Visit: Yes Hospitalist: Subjective Interval history: Patient urgently intubated last night due to increasing co2. Extensive yeast and her fat rolls with wounds, not able to care for herself properly. Started diflucan, will give prn morphine for pain. Potassium high, two doses of kayexalate given. will need bm, good urine output, cancel card consult. Will start tube feeds Exam - Constitutional Vitals: Period Temp Pulse Resp BP Sys/Wisdom Pulse Ox Last 24 Hr 97.4 F-98.9 F 60-88 14-29 74-199/46-96 92-100 Exam: Heart Rate-[RRR] Lungs-[diminished and coarse] GI-[+bs soft, NT, extreme obesity] Ext-[chronic lymph edema] Neuro sedated and intubated psych unable to assess General [no acute distress] skin extensive excoriation from yeast in folds. Results - Labs CBC & BMP: 01/23/17 04:56 01/23/17 04:56 Lab Results: I have reviewed the past 24 hour labs Labs: Blood cultures pending - Diagnostic Findings Procedure: Chest x-ray: report reviewed by me (Bilateral pleural effusions with edema unchanged)
--- NOTE | 2017-01-23 15:30 | Ultrasound Report ---
Venous Doppler ultrasound bilateral lower extremities Indication: Swelling Comparison: None available Findings: No evidence of echogenic, noncompressible thrombus seen in the visualized veins of the extremities. Color Doppler venous waveform pattern is within normal limits. Impression: No evidence of deep venous thrombosis. Ultrasound images stored and captured. PROCEDURE INTERPRETED AT [facility] DEPARTMENT OF RADIOLOGY Final Report Signed by: Dr. Carloz Pearson
[2017-01-23] MEDS: MORPHINE 2 MG/1 ML SYRINGE IV PRN ×2 (15:46→21:56)
--- NOTE | 2017-01-23 19:13 | ECHO Report ---
Marissa Norton Exam Date: 01/23/2017 09:25 Referring Physician: Technologist: Mary Childs Age: 61 Ht (in): 64 Wt (lb): 342 Gender: F Exam Location: [facility] Echo Indications: resp. failure, elevated troponin, LISSETT, pickwichian, renal insuff, morbid obesity BP: 149 / 98 HR: 86 Rhythm: Sinus Technical Quality: Limited study IMPRESSIONS 1. Very limited study. 2. Left ventricle is normal size to mildly dilated with normal ejection fraction of at least 55%. There appears to be some mild concentric left ventricular hypertrophy. 3. Moderately dilated right ventricle, right atrium, and left atrium. 4. Minimal mitral valve sclerosis with mild regurgitation. 5. Aortic valve is never well visualized but with possible mild stenosis by Doppler. 6. Tricuspid and pulmonic valves are not adequately visualized. MEASUREMENTS (Male / Female) Normal Values 2D ECHO LV Diastolic Diameter PLAX 5.1 cm 4.2 - 5.9 / 3.9 - 5.3 cm LV Systolic Diameter PLAX 2.4 cm LV Fractional Shortening PLAX 53.1 % IVS Diastolic Thickness 1.5 cm 0.6 - 1.0 / 0.6 - 0.9 cm LVPW Diastolic Thickness 1.5 cm 0.6 - 1.0 / 0.6 - 0.9 cm RV Internal Dim ED PLAX 3.4 cm Aortic Root Diameter 2.5 cm LA Systolic Diameter LX 4.6 cm 3.0 - 4.0 / 2.7 - 3.8 cm DOPPLER TR Peak Velocity 331.0 cm/s TR Peak Gradient 43.8 mmHg FINDINGS Left Ventricle Left ventricle is a normal size to mildly dilated and probably normal systolic function with an ejection fraction of at least 55%. There appears to be at least some mild concentric left ventricular hypertrophy. Right Ventricle Moderately increased right ventricular size. Right Atrium Moderately increased right atrial size. Left Atrium Moderately increased left atrial diameter. Mitral Valve Mitral valve sclerosis. Mild mitral valve regurgitation. Aortic Valve Aortic valve is never well visualized. Doppler indicates it worse mild stenosis. Tricuspid Valve Tricuspid valve is not well visualized. There is no significant Doppler abnormalities demonstrated. Pulmonic Valve Pulmonic valve not well visualized. Pericardium No pericardial effusion. Pericardial fat pad is present. Aorta Normal size aortic root and proximal ascending aorta. Daniel Sierra MD (Electronically Signed) Final Date: 23 Jan 2017 19:11
[2017-01-23] MEDS: INSULIN REGULAR 100 UNIT/ML SUBCUT SCH (19:26)
[2017-01-23] MEDS: BENZTROPINE 1 MG TABLET PO SCH (21:45)
[2017-01-23] MEDS: lamoTRIgine 25 MG TABLET PO SCH (21:45)
[2017-01-23] MEDS: PRAVASTATIN 20 MG TABLET PO SCH (21:45)
[2017-01-23] MEDS: ENOXAPARIN 40 MG/0.4 ML SYRINGE SUBCUT SCH (21:45)
[2017-01-24] MEDS: INSULIN REGULAR 100 UNIT/ML SUBCUT SCH ×5 (00:25→23:46)
[2017-01-24] MEDS: methylPREDNISolone SOD SUC 40 MG/1 ML VIAL IV SCH ×3 (01:32→17:03)
[2017-01-24] MEDS: PROPOFOL 1,000 MG/100 ML BOTTLE IV SCH ×15 (01:44→23:55)
[2017-01-24] MEDS: ALBUTEROL/IPRATROPIUM 3 ML NEB RESP TX SCH ×4 (01:55→19:34)
[2017-01-24] MEDS: PIPERACILLIN/TAZOBACTAM 3,375 MG in SODIUM CHLORIDE 0.9% 100 ML IV SCH ×3 (05:22→21:44)
[2017-01-24 05:44] LABS: Basophils % 0.1 % (0.0-0.8); Immature Granulocytes % 1.3 %; Immature Granulocytes Absolute 0.16 #; Lymphocytes # 1.3 10*3/uL (1.4-4.0); Mean Corpuscular HGB Conc 31.7 GM/DL (32-36); Mean Corpuscular Hemoglobin 27 PG (27-34); Mean Corpuscular Volume 83.5 FL (87-102); Mean Platelet Volume 10.1 FL (9.6-12.0); Monocytes # 0.6 10*3/uL (0.11-0.8); Monocytes % 4.5 % (1.7-12.7); NRBC # 0.07 10*3/uL; Neutrophils # 10.7 10*3/uL (1.4-7.4); Neutrophils % 84.1 % (38.7-73.9); Platelet Count 186 T/CUMM (130-400); Red Blood Count 4.91 MC/CUMM (3.8-5.5); White Blood Count 12.7 T/CUMM (4-12)
[2017-01-24 06:18] LABS: Phosphorous 3.1 MG/DL (2.5-4.9); Prealbumin 18.9 MG/DL (20-40)
[2017-01-24] MEDS: LEVOTHYROXINE 150 MCG TABLET PO SCH (06:27)
[2017-01-24] MEDS ORDERED: PNEUMOCOCCAL VACCINE (23 VALENT) 0.5 ML VIAL IM ONE (09:00)
[2017-01-24] MEDS: risperiDONE 1 MG TABLET PO SCH (09:13)
[2017-01-24] MEDS: GABAPENTIN 100 MG CAPSULE PO SCH ×3 (09:13→20:24)
[2017-01-24] MEDS: FLUCONAZOLE 200 MG TABLET PO SCH (09:13)
[2017-01-24] MEDS: DESITIN 4OZ/NYSTATIN 15 GRAM MIXTURE PASTE TOP SCH ×2 (09:14→20:24)
[2017-01-24] MEDS: FUROSEMIDE 40 MG/4 ML VIAL IV SCH ×2 (09:14→17:02)
[2017-01-24] MEDS ORDERED: SODIUM POLYSTYRENE SULFATE 15 GM/60 ML BOTTLE PO ONE (09:32)
[2017-01-24] MEDS ORDERED: ZIPRASIDONE 20 MG/1 ML VIAL IM PRN (09:38)
[2017-01-24 10:35] LABS: Calcium 8.4 MG/DL (8.5-10.1); Magnesium 1.8 MG/DL (1.8-2.4); Potassium 4.5 MMOL/L (3.5-5.1)
[2017-01-24] MEDS: LORazepam 2 MG/1 ML VIAL IV PRN ×2 (10:55→20:23)
[2017-01-24] MEDS ORDERED: MAGNESIUM CITRATE 300 ML BOTTLE PO ONE (11:16)
--- NOTE | 2017-01-24 11:18 | Hospitalist Progress Note ---
Assessment and Plan (1) Respiratory failure Status: Acute Assessment and plan: multifactorial with copd, OHS, CHF, LISSETT, cont treatment with lasix, steroids, vent support Current Visit: Yes (2) Cellulitis Status: Acute Assessment and plan: cont zosyn and diflucan, venous dopplers negative for dvt Current Visit: Yes (3) Congestive heart failure Status: Acute Assessment and plan: cont lasix 40 mg IV every 12 hours, echo ef 55% Current Visit: Yes (4) Hyperkalemia Status: Acute Assessment and plan: resolved, cont to monitor Current Visit: Yes (5) Renal insufficiency Status: Acute Assessment and plan: stable, cont to monitor while on lasix Current Visit: Yes (6) Morbid obesity Status: Acute Assessment and plan: needs to lose weight Current Visit: Yes (7) Obstructive sleep apnea Status: Acute Assessment and plan: Dr. Guido will re-evaluate when extubated Current Visit: Yes (8) Elevated troponin Status: Acute Assessment and plan: probably due to chf exacerbation Current Visit: Yes (9) Hypoventilation syndrome Status: Acute Assessment and plan: due to morbid obesity Current Visit: Yes (10) COPD (chronic obstructive pulmonary disease) Status: Acute Assessment and plan: duoneb, steroids, zosyn Current Visit: Yes (11) Yeast infection involving the vagina and surrounding area Status: Acute Assessment and plan: diflucan daily Current Visit: Yes Hospitalist: Subjective Interval history: Patient constantly chewing on her tube despite maximum support with dipper Van. Will add Ativan IV. She has not had a bowel movement. Will order another stat BMP. Have to give her another dose of Kayexalate. Exam - Constitutional Vitals: Period Temp Pulse Resp BP Sys/Wisdom Pulse Ox Last 24 Hr 97 F-98 F 60-84 14-67 101-145/43-117 95-100 Exam: Heart Rate-[RRR] Lungs-[coarse rhonchi ] GI-[+bs soft, NT, extreme obesity] Ext-[chronic lymph edema] Neuro sedated and intubated psych agitated mood and affect General [mild acute distress] skin extensive excoriation from yeast in folds. Results - Labs CBC & BMP: 01/24/17 04:22 01/24/17 09:43 Lab Results: I have reviewed the past 24 hour labs Labs: blood cultures no growth - Diagnostic Findings Procedure: Ultrasound: report reviewed by me (Negative for DVT, echocardiogram showed an EF of 55% with dilation of the left atrium, right atrium and right ventricle.)
--- NOTE | 2017-01-24 11:38 | XRay Report ---
XR chest 1V portable Indication: Intubation Comparison: 23 Jan 2017 Findings: The heart and mediastinum are stable in size and configuration. Pacemaker device is unchanged in position. Lines and tubes are unchanged in position. The pulmonary vascularity is increased with bilateral increased interstitial lung density. No other lung infiltrates, effusions, pneumothorax or other abnormality is demonstrated. Impression: Findings suggest cardiac decompensation. PROCEDURE INTERPRETED AT [facility] DEPARTMENT OF RADIOLOGY Final Report Signed by: Dr. Carloz Pearson
[2017-01-24 11:45] LABS: Allen Test Positive; Pt O2 Delivery Device Ventilator
[2017-01-24 11:47] LABS: ABG Base Excess 5.9 MMOL/L (-2.5-2.5); ABG HCO3 29.8 MMOL/L (20-26); ABG Oxygen Saturation 97.5 % (95-100); ABG PCO2 48.2 MM HG (35-48); ABG PH 7.424 (7.35-7.45); ABG TCO2 27.3 MMOL/L (23-27)
--- NOTE | 2017-01-24 13:12 | Pulmonology Progress Note ---
Pulmonary - PN: Subj Interval history: 61-year-old obese female admitted for respiratory failure requiring mechanical ventilation. Overnight she has had issues with agitation related to the ET tube but has otherwise remained stable. Vent settings have been titrated down with saturations remaining above 90%. Lower extremity Dopplers were negative for evidence of DVT. No other acute issues. Exam (Progress Note) - Constitutional Vitals: Period Temp Pulse Resp BP Sys/Wisdom Pulse Ox Last 24 Hr 97 F-98 F 60-84 14-67 101-145/43-117 95-100 General appearance: morbidly obese - Head Head exam: Present: normal inspection - Eye Eye exam: Present: EOMI Pupils: Present: FARA - Neck Neck exam: Present: normal inspection - Respiratory Respiratory exam: Present: clear to auscultation bilaterally, decreased breath sounds. Absent: wheezes - Cardiovascular Cardiovascular exam: Present: regular rate and rhythm - GI/Abdominal GI/Abdominal exam: Present: normal bowel sounds, soft - Extremities Exam Extremities exam: Present: edema - Neurological Exam Neurological exam: Present: other (Sedated on the ventilator) - Skin Skin exam: Present: warm, dry Results - Labs CBC & BMP: 01/24/17 04:22 01/24/17 09:43 - Diagnostic Findings Procedure: Chest x-ray: image reviewed by me, report reviewed by me (Findings suggesting volume overload.), Ultrasound: image reviewed by me, report reviewed by me (No evidence of DVT) Assessment and Plan (1) Respiratory failure Status: Acute Assessment and plan: Acute respiratory failure requiring mechanical ventilation. Likely multifactorial from volume overload and COPD. Signs of improvement this morning. We will continue to titrate down vent settings and continue other therapies. Current Visit: Yes (2) COPD (chronic obstructive pulmonary disease) Status: Acute Assessment and plan: No wheezing on today's exam. Continue nebs and Solu-Medrol. Current Visit: Yes (3) Congestive heart failure Status: Acute Assessment and plan: Pending echo results. Chest x-ray with evidence of volume overload. Continue diuresis. Current Visit: Yes (4) Renal insufficiency Status: Acute Assessment and plan: Creatinine improving this morning. Continue to trend Current Visit: Yes (5) Pickwickian syndrome Status: Acute Current Visit: Yes
[2017-01-24] MEDS: BENZTROPINE 1 MG TABLET PO SCH (20:23)
[2017-01-24] MEDS: ENOXAPARIN 40 MG/0.4 ML SYRINGE SUBCUT SCH (20:23)
[2017-01-24] MEDS: PRAVASTATIN 20 MG TABLET PO SCH (20:23)
[2017-01-24] MEDS: lamoTRIgine 25 MG TABLET PO SCH (20:24)
[2017-01-25] MEDS: ALBUTEROL/IPRATROPIUM 3 ML NEB RESP TX SCH ×4 (00:13→19:19)
[2017-01-25] MEDS: methylPREDNISolone SOD SUC 40 MG/1 ML VIAL IV SCH ×3 (01:15→12:39)
[2017-01-25] MEDS: PROPOFOL 1,000 MG/100 ML BOTTLE IV SCH ×11 (02:10→21:05)
[2017-01-25 03:20] LABS: ABG Base Excess 9.9 MMOL/L (-2.5-2.5); ABG HCO3 33.6 MMOL/L (20-26); ABG Oxygen Saturation 96.2 % (95-100); ABG PCO2 40.8 MM HG (35-48); ABG PH 7.525 (7.35-7.45); ABG PO2 75.1 MM HG (80-95); ABG TCO2 28.8 MMOL/L (23-27); Allen Test Positive; Pt O2 Delivery Device Ventilator
[2017-01-25] MEDS: LORazepam 2 MG/1 ML VIAL IV PRN ×3 (03:33→20:50)
[2017-01-25 04:25] LABS: Basophils % 0.1 % (0.0-0.8); Hematocrit 42.3 VOL% (35.7-47.0); Hemoglobin 13.5 GM/DL (12.0-16.0); Immature Granulocytes % 0.9 %; Lymphocytes # 1.8 10*3/uL (1.4-4.0); Lymphocytes % 16.3 % (21.3-54.2); Mean Corpuscular HGB Conc 31.9 GM/DL (32-36); Mean Corpuscular Hemoglobin 27 PG (27-34); Mean Corpuscular Volume 82.9 FL (87-102); Mean Platelet Volume 9.5 FL (9.6-12.0); Monocytes # 0.6 10*3/uL (0.11-0.8); Monocytes % 5.6 % (1.7-12.7); NRBC # 0.03 10*3/uL; Neutrophils # 8.5 10*3/uL (1.4-7.4); Neutrophils % 77.1 % (38.7-73.9); Platelet Count 180 T/CUMM (130-400); Red Cell Distribution Width 17.9 % (9.3-17.3)
[2017-01-25 04:50] LABS: Magnesium 1.8 MG/DL (1.8-2.4); Osmolality,Calculated 290.5 MOS/KG (273-304); Potassium 3.7 MMOL/L (3.5-5.1)
[2017-01-25] MEDS: INSULIN REGULAR 100 UNIT/ML SUBCUT SCH ×4 (05:15→23:42)
[2017-01-25] MEDS: LEVOTHYROXINE 150 MCG TABLET PO SCH (06:01)
[2017-01-25] MEDS: PIPERACILLIN/TAZOBACTAM 3,375 MG in SODIUM CHLORIDE 0.9% 100 ML IV SCH ×3 (06:01→21:05)
--- NOTE | 2017-01-25 08:59 | Pulmonology Progress Note ---
Pulmonary - PN: Subj Interval history: 61-year-old obese female admitted for respiratory failure requiring mechanical ventilation. She did well overnight without acute issues. Ativan has provided improvement in agitation. Saturations remained stable on current FiO2. Chest x -ray this morning is overall stable with continued evidence of volume overload. Exam (Progress Note) - Constitutional Vitals: Period Temp Pulse Resp BP Sys/Wisdom Pulse Ox Last 24 Hr 97.7 F-98.2 F 60-95 14-22 101-143/42-73 94-99 General appearance: morbidly obese - Head Head exam: Present: normal inspection - Eye Eye exam: Present: EOMI Pupils: Present: FARA - Respiratory Respiratory exam: Present: rales. Absent: accessory muscle use, wheezes - Cardiovascular Cardiovascular exam: Present: regular rate and rhythm. Absent: systolic murmur - GI/Abdominal GI/Abdominal exam: Present: normal bowel sounds, soft. Absent: tenderness - Neurological Exam Neurological exam: Present: other (Sedated on the ventilator) - Skin Skin exam: Present: warm, dry Results - Labs CBC & BMP: 01/25/17 04:12 01/25/17 04:12 - Diagnostic Findings Procedure: Chest x-ray: image reviewed by me (Overall unchanged with continued evidence of volume overload) Assessment and Plan (1) Respiratory failure Status: Acute Assessment and plan: Acute respiratory failure requiring mechanical ventilation. Likely multifactorial from volume overload and COPD. Will adjust ventilator by increasing PEEP to hopefully allow for a reduction in FiO2. Continue other therapies. Current Visit: Yes (2) COPD (chronic obstructive pulmonary disease) Status: Acute Assessment and plan: No wheezing on today's exam. Continue nebs and can reduce Solu-Medrol dosing to twice daily. Current Visit: Yes (3) Congestive heart failure Status: Acute Assessment and plan: Echo shows evidence of preserved ejection fraction with some diastolic dysfunction. Chest x-ray with evidence of volume overload. Continue diuresis. Current Visit: Yes (4) Renal insufficiency Status: Acute Assessment and plan: Creatinine improving this morning. Continue to trend Current Visit: Yes (5) Pickwickian syndrome Status: Acute Current Visit: Yes
--- NOTE | 2017-01-25 09:07 | XRay Report ---
XR chest 1V portable Indication: Intubation Comparison: 24 Jan 2017 Findings: The heart and mediastinum are stable in size and configuration. The lines and tubes are unchanged in position. Pacemaker device is unchanged in position. The pulmonary vascularity is improved. No lung infiltrates, effusions, pneumothorax or other abnormality is demonstrated. Impression: Improved pulmonary vascularity. No other significant changes. PROCEDURE INTERPRETED AT [facility] DEPARTMENT OF RADIOLOGY Final Report Signed by: Dr. Carloz Pearson
[2017-01-25] MEDS: FUROSEMIDE 40 MG/4 ML VIAL IV SCH ×2 (09:11→15:37)
[2017-01-25] MEDS: GABAPENTIN 100 MG CAPSULE PO SCH ×3 (09:12→20:50)
[2017-01-25] MEDS: DESITIN 4OZ/NYSTATIN 15 GRAM MIXTURE PASTE TOP SCH ×2 (09:12→20:49)
[2017-01-25] MEDS: FLUCONAZOLE 200 MG TABLET PO SCH (09:12)
[2017-01-25] MEDS: MULTIVITAMIN LIQUID (CENTRUM) 60 ML BOTTLE PO SCH (09:19)
--- NOTE | 2017-01-25 12:01 | Hospitalist Progress Note ---
Assessment and Plan (1) Respiratory failure Status: Acute Assessment and plan: multifactorial with copd, OHS, CHF, LISSETT, cont will increase diuresis, steroids, vent support. Tube feedings on hold as foreign language stenographer says she is getting enough calories from the high dose of diprivan Current Visit: Yes (2) Cellulitis Status: Acute Assessment and plan: due mainly from yeast cont diflucan Current Visit: Yes (3) Congestive heart failure Status: Acute Assessment and plan: cont lasix 40 mg IV every 12 hours, echo ef 55%, spironolactone 25 mg po bid started as chf still shows no improvement on cxr Current Visit: Yes (4) Hyperkalemia Status: Acute Assessment and plan: resolved, cont to monitor Current Visit: Yes (5) Renal insufficiency Status: Acute Assessment and plan: stable, cont to monitor while on lasix Current Visit: Yes (6) Morbid obesity Status: Acute Assessment and plan: needs to lose weight Current Visit: Yes (7) Obstructive sleep apnea Status: Acute Assessment and plan: Dr. Guido will re-evaluate when extubated Current Visit: Yes (8) Elevated troponin Status: Acute Assessment and plan: probably due to chf exacerbation Current Visit: Yes (9) Hypoventilation syndrome Status: Acute Assessment and plan: due to morbid obesity Current Visit: Yes (10) COPD (chronic obstructive pulmonary disease) Status: Acute Assessment and plan: duoneb, steroids, zosyn Current Visit: Yes (11) Yeast infection involving the vagina and surrounding area Status: Acute Assessment and plan: diflucan daily Current Visit: Yes Hospitalist: Subjective Interval history: Patient has diffuse anasarca. She is still not having bowel movements. Ativan is controlling her agitation on the vent. Exam - Constitutional Vitals: Period Temp Pulse Resp BP Sys/Wisdom Pulse Ox Last 24 Hr 97.7 F-98.2 F 60-95 14-19 101-143/42-73 94-98 Exam: Heart Rate-[RRR] Lungs-[crackles GI-[+bs soft, NT, extreme obesity] Ext-[severe chronic lymph edema and anasarca ] Neuro sedated and intubated psych unable to assess due to sedation General [no acute distress] skin extensive excoriation from yeast in folds. Results - Labs CBC & BMP: 01/25/17 04:12 01/25/17 04:12 Lab Results: I have reviewed the past 24 hour labs Labs: blood cx negative - Diagnostic Findings Procedure: Chest x-ray: report reviewed by me (chf)
[2017-01-25] MEDS: LACTULOSE 20 GM/30 ML UDCUP PO SCH ×2 (12:34→18:57)
[2017-01-25] MEDS: SPIRONOLACTONE 25 MG TABLET PO SCH ×2 (12:34→20:51)
[2017-01-25] MEDS: BENZTROPINE 1 MG TABLET PO SCH (20:50)
[2017-01-25] MEDS: lamoTRIgine 25 MG TABLET PO SCH (20:50)
[2017-01-25] MEDS: PRAVASTATIN 20 MG TABLET PO SCH (20:50)
[2017-01-25] MEDS: ENOXAPARIN 40 MG/0.4 ML SYRINGE SUBCUT SCH (20:51)
[2017-01-26] MEDS: ALBUTEROL/IPRATROPIUM 3 ML NEB RESP TX SCH ×4 (00:53→20:48)
[2017-01-26] MEDS: PROPOFOL 1,000 MG/100 ML BOTTLE IV SCH ×7 (02:05→12:51)
[2017-01-26 02:43] LABS: ABG Base Excess 11.2 MMOL/L (-2.5-2.5); ABG Oxygen Saturation 97.4 % (95-100); ABG PCO2 45.8 MM HG (35-48); ABG PH 7.505 (7.35-7.45); ABG PO2 90.4 MM HG (80-95); ABG TCO2 30.8 MMOL/L (23-27); Allen Test Positive; Pt O2 Delivery Device Ventilator
[2017-01-26 04:52] LABS: Basophils % 0.1 % (0.0-0.8); Hematocrit 43.6 VOL% (35.7-47.0); Hemoglobin 13.9 GM/DL (12.0-16.0); Immature Granulocytes Absolute 0.11 #; Lymphocytes # 1.4 10*3/uL (1.4-4.0); Lymphocytes % 12.2 % (21.3-54.2); Mean Corpuscular HGB Conc 31.9 GM/DL (32-36); Mean Corpuscular Hemoglobin 27 PG (27-34); Mean Corpuscular Volume 83.2 FL (87-102); Mean Platelet Volume 9.7 FL (9.6-12.0); Monocytes # 0.5 10*3/uL (0.11-0.8); Monocytes % 4.7 % (1.7-12.7); Neutrophils # 9.2 10*3/uL (1.4-7.4); Platelet Count 185 T/CUMM (130-400); Red Blood Count 5.24 MC/CUMM (3.8-5.5); Red Cell Distribution Width 17.7 % (9.3-17.3); White Blood Count 11.3 T/CUMM (4-12)
[2017-01-26 05:19] LABS: Calcium 7.7 MG/DL (8.5-10.1); Osmolality,Calculated 293.4 MOS/KG (273-304); Potassium 3.2 MMOL/L (3.5-5.1)
[2017-01-26 05:21] LABS: Phosphorous 3.7 MG/DL (2.5-4.9); Prealbumin 34.7 MG/DL (20-40)
[2017-01-26] MEDS: INSULIN REGULAR 100 UNIT/ML SUBCUT SCH ×4 (06:19→23:01)
[2017-01-26] MEDS: PIPERACILLIN/TAZOBACTAM 3,375 MG in SODIUM CHLORIDE 0.9% 100 ML IV SCH (06:21)
[2017-01-26] MEDS: LACTULOSE 20 GM/30 ML UDCUP PO SCH ×4 (06:21→17:53)
[2017-01-26] MEDS: LEVOTHYROXINE 150 MCG TABLET PO SCH (06:28)
--- NOTE | 2017-01-26 08:34 | XRay Report ---
Portable chest Date: 01/26/2017 Clinical history: Intubation Comparison: 01/25/2017 Technique: Portable AP sitting chest Findings: Progressive cardiomegaly with stable support devices and left subclavian atrioventricular pacemaker. Motion artifact with progressive diffuse parenchymal findings and small pleural effusions. Stable mediastinum and osseous structures. Impression: Supportive devices remaining in satisfactory position. Progressive edema/infiltration on this limited exam. PROCEDURE INTERPRETED AT [facility] DEPARTMENT OF RADIOLOGY Final Report Signed by: Dr. Marissa Fowler
[2017-01-26] MEDS: FUROSEMIDE 40 MG/4 ML VIAL IV SCH ×2 (08:39→15:04)
[2017-01-26] MEDS: SPIRONOLACTONE 25 MG TABLET PO SCH ×2 (08:40→21:33)
[2017-01-26] MEDS: GABAPENTIN 100 MG CAPSULE PO SCH ×3 (08:40→21:33)
[2017-01-26] MEDS: FLUCONAZOLE 200 MG TABLET PO SCH (08:40)
[2017-01-26] MEDS: MULTIVITAMIN LIQUID (CENTRUM) 60 ML BOTTLE PO SCH (08:41)
--- NOTE | 2017-01-26 08:56 | Pulmonology Progress Note ---
Pulmonary - PN: Subj Interval history: Patient is a 61-year-old white lady that is very obese and likely has some COPD. She has a pacemaker and has diastolic heart failure. She has a history of hypertension and sleep apnea. She came in in respiratory failure and is on the ventilator. She was having considerable bronchospasm but is much better now. She looks like she is reasonably comfortable on the ventilator. Her wheezing is much better. Her chest x-ray is stable. Overall she is improving a little and will try to wean some. Exam (Progress Note) - Constitutional Vitals: Period Temp Pulse Resp BP Sys/Wisdom Pulse Ox Last 24 Hr 97.8 F-98.5 F 60-76 14-24 100-162/45-75 93-100 Exam: General appearance: no acute distress (She is sedated on the ventilator at present. She does respond okay.), morbidly obese - Head Head exam: Present: normal inspection, normocephalic - Eye Eye exam: Present: EOMI. Absent: scleral icterus Pupils: Present: FARA - ENT ENT exam: Present: other (ET tube is in good position) - Neck Neck exam: Present: normal inspection. Absent: lymphadenopathy, thyromegaly - Respiratory Respiratory exam: Present: She has good breath sounds bilaterally and her wheezing is markedly decreased. - Cardiovascular Cardiovascular exam: Present: regular rate and rhythm, other (She has a paced rhythm). Absent: systolic murmur - GI/Abdominal GI/Abdominal exam: Present: normal bowel sounds, soft. Absent: organomegaly, tenderness - Extremities Exam Extremities exam: Present: other (She does have rather large extremities. Her leg swelling is a little better.). Absent: calf tenderness, edema - Neurological Exam Neurological exam: Present: altered (She is sedated on the ventilator at present ) - Skin Skin exam: Present: warm, dry, erythema (She has some redness on her legs) Results - Labs CBC & BMP: 01/26/17 03:58 01/26/17 03:58 Labs: Her PO2 is 90 with a PCO2 of 45 and a pH of 7.5 - Diagnostic Findings Procedure: Chest x-ray: image reviewed by me, report reviewed by me (Chest x- ray shows cardiomegaly but her lung marr are fairly clear.) Assessment and Plan (1) Congestive heart failure Status: Acute Assessment and plan: The patient has good left ventricular function but does have some diastolic dysfunction. She has been getting some diuresis. Her weight is going down nicely. Current Visit: Yes (2) Renal insufficiency Status: Acute Assessment and plan: Patient has improved and her creatinine is down to 1.0. Current Visit: Yes (3) Morbid obesity Status: Acute Assessment and plan: The patient has a BMI of 75 Current Visit: Yes (4) Pickwickian syndrome Status: Acute Assessment and plan: The patient likely has chronic CO2 retention. Current Visit: Yes (5) Respiratory failure Status: Acute Assessment and plan: Patient comes in with respiratory failure with both hypoxemia and CO2 retention. She is now on the ventilator at present. Overall she is a little better and will try to start weaning. Current Visit: Yes (6) COPD (chronic obstructive pulmonary disease) Status: Acute Assessment and plan: Patient is a smoker and is wheezing and likely has significant COPD. Her wheezing is much better and she is responding to therapy. Current Visit: Yes
[2017-01-26] MEDS: POTASSIUM CHLORIDE 20 MEQ/15 ML UDCUP PER TUBE SCH ×2 (09:15→15:04)
[2017-01-26] MEDS: DESITIN 4OZ/NYSTATIN 15 GRAM MIXTURE PASTE TOP SCH ×2 (09:16→21:37)
--- NOTE | 2017-01-26 09:33 | Physician Query Form ---
CLICK EDIT DOCUMENT TO SELECT QUERY ANSWER --> OK --> SIGN Nae Malcolm RN, CCDS Certified Clinical Lpn Instructor W) [phone] (f) [phone] [email or web address] PROVIDERS: Make your selection(s) from the choices in EACH section by typing an "x" and enter comments in the comment section. Please use your independent medical judgment in providing your response. This request does not imply that any particular answer is desired or expected. CLINICAL INDICATORS: (Providers should not edit this section) The medical record indicates that the patient was admitted with respiratory failure, creatinine of 1.80# on the , GFR of 43# and renal insufficiency is mentioned. ----Treated with Lasix due to the CHF Clarify which of the following most accurately represents the patient's renal status: ( ) Acute kidney injury (non-traumatic) ( ) Acute renal failure ( ) Acute renal failure with underlying Chronic Kidney Disease (CKD) - please provide stage below ( ) Acute renal failure with pathological renal lesion ( ) Acute renal failure with necrosis ( ) tubular ( ) medullary ( ) cortical ( ) CKD - please provide stage below ( ) End Stage Renal Disease ( ) Acute interstitial nephritis ( ) Hepatorenal syndrome ( ) Other, please specify: ( x) Clinically unable to determine-- will need to see what it does to know if it is acute or chronic. Chronic Kidney Disease Stages Source: National Kidney Disease Foundation ( ) Stage I (eGFR > or = 90) ( ) Stage II (eGFR 60 - 89) ( ) Stage III (eGFR 30 - 59) ( ) Stage IV (eGFR 15 - 29) ( ) Stage V (eGFR < 15 or dialysis) COMMENTS: PLEASE ALSO DOCUMENT RESPONSE IN PROGRESS NOTES AND/OR DISCHARGE SUMMARY Use of terms such as suspected, likely, or probable (associated with a specific diagnosis that is being evaluated, monitored, or treated as if it exists) are acceptable and can be restated in the discharge summary if not ruled out. MTDD
--- NOTE | 2017-01-26 09:34 | Physician Query Form ---
CLICK EDIT DOCUMENT TO SELECT QUERY ANSWER --> OK --> SIGN Nae Malcolm RN, CCDS Certified Clinical Youth Manager W) [phone] (f) [phone] [email or web address] PROVIDERS: Make your selection(s) from the choices in EACH section by typing an "x" and enter comments in the comment section. Please use your independent medical judgment in providing your response. This request does not imply that any particular answer is desired or expected. CLINICAL INDICATORS: (Providers should not edit this section) The medical record indicates that the patient was admitted with respiratory failure, COPD (acute), "was having considerable bronchospasm but is much better now" and the patient was treated with Duoneb, Proventil, solumedrol. Based on the above, could you clarify the appropriate diagnosis, if significant , that supports the above abnormalities and additional evaluation, monitoring, and/or treatment rendered: ( ) Patient was not treated or monitored for COPD exacerbation ( x) Patient was treated or monitored for COPD exacerbation ( ) Other, please specify: ( ) Clinically unable to determine COMMENTS: PLEASE ALSO DOCUMENT RESPONSE IN PROGRESS NOTES AND/OR DISCHARGE SUMMARY Use of terms such as suspected, likely, or probable (associated with a specific diagnosis that is being evaluated, monitored, or treated as if it exists) are acceptable and can be restated in the discharge summary if not ruled out. MTDD
--- NOTE | 2017-01-26 09:35 | Physician Query Form ---
CLICK EDIT DOCUMENT TO SELECT QUERY ANSWER --> OK --> SIGN Nae Malcolm RN, CCDS Certified Clinical Pipefitter W) [phone] (f) [phone] [email or web address] PROVIDERS: Make your selection(s) from the choices in EACH section by typing an "x" and enter comments in the comment section. Please use your independent medical judgment in providing your response. This request does not imply that any particular answer is desired or expected. CLINICAL INDICATORS: (Providers should not edit this section) The medical record indicates that the patient was admitted with respiratory failure, CHF acute, and -("cont lasix 40 mg IV every 12 hours, echo ef 55%").--- Echo shows evidence of preserved ejection fraction with some diastolic dysfunction Please provide further specificity regarding CHF. ACUITY: ( x) Acute ( ) Chronic ( ) Acute on Chronic ( ) Clinically unable to determine TYPE: ( ) Systolic (HFrEF - heart failure with reduced systolic function/EF) ( x) Diastolic (HFpEF - heart failure with preserved systolic function/EF) ( ) Combined Systolic/Diastolic ( ) Other, please specify: ( ) Clinically unable to determine ( ) The patient does NOT have CHF COMMENTS: PLEASE ALSO DOCUMENT RESPONSE IN PROGRESS NOTES AND/OR DISCHARGE SUMMARY Use of terms such as suspected, likely, or probable (associated with a specific diagnosis that is being evaluated, monitored, or treated as if it exists) are acceptable and can be restated in the discharge summary if not ruled out. MTDD
[2017-01-26] MEDS: methylPREDNISolone SOD SUC 40 MG/1 ML VIAL IV SCH ×2 (12:24)
--- NOTE | 2017-01-26 14:35 | Hospitalist Progress Note ---
Assessment and Plan (1) Respiratory failure Status: Acute Assessment and plan: 1)acute respiratory failure- multiple causes- OHS, COPD exacerbation, pulmonary edema. Continue treating the causes- diuresis, steroids. Dr Guido to see once seestephania is extubated. She has started CPAP trials 2)morbid obesity- calorie needs met by diprivan 3)LISSETT 4)hypokalemia- replace today 5)COPD 6)yeast in intertriginous folds- on diflucan. No sign of bacterial cellulitis. stop Zosyn. Current Visit: Yes (2) Hypokalemia Status: Acute Current Visit: Yes (3) Congestive heart failure Status: Acute Current Visit: Yes (4) Morbid obesity Status: Acute Current Visit: Yes (5) Hypoventilation syndrome Status: Acute Current Visit: Yes (6) COPD (chronic obstructive pulmonary disease) Status: Acute Current Visit: Yes (7) Yeast infection involving the vagina and surrounding area Status: Acute Current Visit: Yes Hospitalist: Subjective Interval history: Ms Norton is stable on the vent. Dr Eduardo has started the weaning process. Her heart rate increased (sinus tach) when her sedation was decreased for CPAP trial. Exam - Constitutional Vitals: Period Temp Pulse Resp BP Sys/Wisdom Pulse Ox Last 24 Hr 97.6 F-98.5 F 63-117 12-22 94-162/45-88 93-100 General appearance: no acute distress (sedated on my exam early this morning. ) , morbidly obese - Head Head exam: Present: normocephalic, atraumatic - Eye Eye exam: Absent: periorbital swelling, scleral icterus - Respiratory Respiratory exam: Present: clear to auscultation bilaterally (distant, but no wheezes) - Cardiovascular Cardiovascular exam: Present: regular rate and rhythm - GI/Abdominal GI/Abdominal exam: Present: normal bowel sounds, soft. Absent: tenderness - Extremities Exam Extremities exam: Present: edema (in lower extremities) - Skin Skin exam: Present: warm, dry Results - Labs CBC & BMP: 01/26/17 03:58 01/26/17 03:58 Lab Results: I have reviewed the past 24 hour labs
[2017-01-26] MEDS ORDERED: MIDAZOLAM 2 MG/2 ML VIAL IV PRN (17:17)
[2017-01-26] MEDS: LORazepam 2 MG/1 ML VIAL IV PRN ×2 (17:38→22:42)
[2017-01-26] MEDS: MORPHINE 2 MG/1 ML SYRINGE IV PRN (19:23)
[2017-01-26] MEDS: MIDAZOLAM 2 MG/2 ML VIAL IV PRN ×2 (19:44→21:34)
--- NOTE | 2017-01-26 21:15 | XRay Report ---
XR chest 1V portable Indication: Tachycardia Comparison: 26 Jan 2017 at 3:09 AM Findings: The heart and mediastinum are stable in size and configuration. Pacemaker device is unchanged in position. Lines and tubes are unchanged in position. The pulmonary vascularity is improved with decreasing interstitial lung density. No other lung infiltrates, effusions, pneumothorax or other abnormality is demonstrated. Impression: Findings suggest improving cardiac decompensation. PROCEDURE INTERPRETED AT [facility] DEPARTMENT OF RADIOLOGY Final Report Signed by: Dr. Carloz Pearson
[2017-01-26] MEDS: BENZTROPINE 1 MG TABLET PO SCH (21:33)
[2017-01-26] MEDS: PRAVASTATIN 20 MG TABLET PO SCH (21:33)
[2017-01-26] MEDS: lamoTRIgine 25 MG TABLET PO SCH (21:33)
[2017-01-26] MEDS: ENOXAPARIN 40 MG/0.4 ML SYRINGE SUBCUT SCH (21:34)
--- NOTE | 2017-01-26 22:00 | EKG Report ---
Stationary ECG Study [facility] Test Date: 01/26/2017 10:01:16 PM Pat Name: MICKIE RODAS Department: Room: 124 Gender: F Chief Safety Officer: : 1955 Requested by: Julian Godoy Order Number: [id number] Reading MD: PHYLLIS TEJEDA Intervals [place] Rate: 135 P: 999 UT: 0 QRS: 71 QRSD: 99 T: 74 QT: 381 QTc: 460 Interpretive Statements ATRIAL FLUTTER/TACHYCARDIA WITH RAPID VENTRICULAR RESPONSE ST DEVIATION AND MODERATE T-WAVE ABNORMALITY Electronically Signed On 01-27-17 18:18:38 CDT by PHYLLIS TEJEDA [id number]
[2017-01-26] MEDS: METOPROLOL TARTRATE 5 MG/5 ML VIAL IV SCH ×3 (22:15→22:38)
[2017-01-27] MEDS: LACTULOSE 20 GM/30 ML UDCUP PO SCH ×2 (00:08→05:59)
[2017-01-27] MEDS: MIDAZOLAM 2 MG/2 ML VIAL IV PRN ×5 (00:09→21:25)
[2017-01-27] MEDS: methylPREDNISolone SOD SUC 40 MG/1 ML VIAL IV SCH ×3 (00:09→21:25)
[2017-01-27] MEDS: ALBUTEROL/IPRATROPIUM 3 ML NEB RESP TX SCH ×4 (01:02→20:10)
[2017-01-27 03:39] LABS: ABG Base Excess 10.5 MMOL/L (-2.5-2.5); ABG HCO3 34.3 MMOL/L (20-26); ABG Oxygen Saturation 97.4 % (95-100); ABG PCO2 54.2 MM HG (35-48); ABG PH 7.444 (7.35-7.45); ABG PO2 92.8 MM HG (80-95); ABG TCO2 31.5 MMOL/L (23-27); Allen Test Positive; Pt O2 Delivery Device Ventilator
[2017-01-27] MEDS: LORazepam 2 MG/1 ML VIAL IV PRN ×3 (04:23→18:15)
[2017-01-27] MEDS: INSULIN REGULAR 100 UNIT/ML SUBCUT SCH ×3 (06:00→18:14)
[2017-01-27] MEDS: LEVOTHYROXINE 150 MCG TABLET PO SCH (06:00)
[2017-01-27 06:17] LABS: Calcium 8.1 MG/DL (8.5-10.1); Magnesium 2.2 MG/DL (1.8-2.4); Osmolality,Calculated 298.3 MOS/KG (273-304); Potassium 3.5 MMOL/L (3.5-5.1)
--- NOTE | 2017-01-27 06:57 | XRay Report ---
Exam: XR chest 1V portable Date: 01/27/2017 4:00 AM Indication: Follow-up ventilator respiratory failure Comparison: 01/26/2017 Technical: AP portable Findings: Endotracheal tube is at the level aortic knob. Nasogastric tube traverses esophagus. A left-sided cardiac pacing device is present with atrial ventricular leads. Mild cardiomegaly. Low volume effusions and atelectatic change present. External cardiac leads are present. No pneumothorax. Patchy interstitial densities in the lung marr bilaterally Impression: 1. Stable position of life-support tubing and cardiac pacing device 2. Persistent low volume effusions and patchy infiltrates bilaterally PROCEDURE INTERPRETED AT [facility] DEPARTMENT OF RADIOLOGY Final Report Signed by: Dr. Km Cintron
--- NOTE | 2017-01-27 08:04 | Pulmonology Progress Note ---
Pulmonary - PN: Subj Interval history: Patient is a 61-year-old white lady that is very obese and likely has some COPD. She has a pacemaker and has diastolic heart failure. She has a history of hypertension and sleep apnea. She came in in respiratory failure and is on the ventilator. She was having considerable bronchospasm but is much better now. She was started on some CPAP trials yesterday and is doing fairly well. She is more alert today. Her oxygenation has been adequate. She did have some problems with atrial arrhythmias. Her chest x-ray shows some left lower lobe atelectasis but otherwise is stable. Exam (Progress Note) - Constitutional Vitals: Period Temp Pulse Resp BP Sys/Wisdom Pulse Ox Last 24 Hr 97.2 F-98.6 F 65-137 12-21 88-127/57-88 91-96 Exam: General appearance: no acute distress (She is more alert today and looks reasonably comfortable.), morbidly obese - Head Head exam: Present: normal inspection, normocephalic - Eye Eye exam: Present: EOMI. Absent: scleral icterus Pupils: Present: FARA - ENT ENT exam: Present: other (ET tube is in good position) - Neck Neck exam: Present: normal inspection. Absent: lymphadenopathy, thyromegaly - Respiratory Respiratory exam: Present: She has good breath sounds bilaterally and her wheezing is markedly decreased. She has some diminished breath sounds in the bases. - Cardiovascular Cardiovascular exam: Present: She has an irregularly irregular rhythm with a heart rate around 100. - GI/Abdominal GI/Abdominal exam: Present: normal bowel sounds, soft. Absent: organomegaly, tenderness - Extremities Exam Extremities exam: Present: other (She does have rather large extremities. Her leg swelling is a little better.). Absent: calf tenderness, edema - Neurological Exam Neurological exam: Present: altered (She is more alert today.) - Skin Skin exam: Present: warm, dry, erythema (She has some redness on her legs) Results - Labs CBC & BMP: 01/26/17 03:58 01/27/17 05:04 Labs: The PO2 is 92 with a PCO2 of 54 and a pH of 7.44 - Diagnostic Findings Procedure: Chest x-ray: image reviewed by me, report reviewed by me (Chest x- ray shows cardiomegaly with some slight atelectasis of the left base.) Assessment and Plan (1) Congestive heart failure Status: Acute Assessment and plan: The patient has good left ventricular function but does have some diastolic dysfunction. She has been getting some diuresis. Her weight is going down nicely. Current Visit: Yes (2) Renal insufficiency Status: Acute Assessment and plan: Patient has a creatinine of 1.2 today. Current Visit: Yes (3) Morbid obesity Status: Acute Assessment and plan: The patient has a BMI of 75 Current Visit: Yes (4) Pickwickian syndrome Status: Acute Assessment and plan: The patient likely has chronic CO2 retention. Her PCO2 is 54 today. Current Visit: Yes (5) Respiratory failure Status: Acute Assessment and plan: Patient comes in with respiratory failure with both hypoxemia and CO2 retention. She is now on the ventilator. Her respiratory status is improving she should be able to come off the ventilator soon. Current Visit: Yes (6) COPD (chronic obstructive pulmonary disease) Status: Acute Assessment and plan: Patient is a smoker and is wheezing and likely has significant COPD. Her wheezing is much better and she is responding to therapy. We will continue with vigorous respiratory therapy. Current Visit: Yes
--- NOTE | 2017-01-27 09:26 | Hospitalist Progress Note ---
Assessment and Plan (1) Respiratory failure Status: Acute Assessment and plan: 1)acute respiratory failure- multiple causes- OHS, COPD exacerbation, pulmonary edema. Continue treating the causes- diuresis, steroids. Dr Guido to see once she is extubated. She has started CPAP trials. Dr Eduardo managing vent. stop home klonipin order as she is now on versed and ativan. 2)morbid obesity 3)LISSETT 4)hypokalemia- replace today 5)COPD- under better control. decrease solumedrol. 6)yeast in intertriginous folds- on diflucan. 7)new afib/flutter- EF normal. start oral dilt 30mg q4h, and ELiquis 5mg BID. Heartrates now around 100, she is not in any distress. replaced lytes yesterday - give another dose of potassium today. EKG in am. I think she may convert when her lytes are replaced and she is on Diltiazem. 8)dispo- to LTAC tomorrow when she is off Diprivan for 24 hours per her insurance guidelines. Current Visit: Yes (2) Hypokalemia Status: Acute Current Visit: Yes (3) Congestive heart failure Status: Acute Current Visit: Yes (4) Morbid obesity Status: Acute Current Visit: Yes (5) Hypoventilation syndrome Status: Acute Current Visit: Yes (6) COPD (chronic obstructive pulmonary disease) Status: Acute Current Visit: Yes (7) Yeast infection involving the vagina and surrounding area Status: Acute Current Visit: Yes Hospitalist: Subjective Interval history: Ms Norton is now in afib/flutter. She has never had tachyarhythmia in the past. Her pacemaker was placed for bradycardia according to her daughter. I was unable to access the [employer] system to review old records. She is awake and alert and calm this morning on versed/ativan/morphine prn. Denies shortness of breath or pain. She has started to have BMs. Exam - Constitutional Vitals: Period Temp Pulse Resp BP Sys/Wisdom Pulse Ox Last 24 Hr 97.2 F-98.6 F 72-137 12-21 88-126/57-88 91-96 General appearance: no acute distress, morbidly obese - Head Head exam: Present: normocephalic, atraumatic - Eye Eye exam: Present: EOMI. Absent: scleral icterus - Respiratory Respiratory exam: Present: clear to auscultation bilaterally (distant) - Cardiovascular Cardiovascular exam: Present: tachycardia - GI/Abdominal GI/Abdominal exam: Present: normal bowel sounds, soft. Absent: tenderness - Extremities Exam Extremities exam: Present: edema - Neurological Exam Neurological exam: Present: alert (talking around the ETT) - Skin Skin exam: Present: warm, dry Results - Labs CBC & BMP: 01/26/17 03:58 01/27/17 05:04 Lab Results: I have reviewed the past 24 hour labs
[2017-01-27] MEDS ORDERED: POTASSIUM CHLORIDE 20 MEQ TABLET PO ONE (09:34)
[2017-01-27] MEDS: FLUCONAZOLE 200 MG TABLET PO SCH (09:53)
[2017-01-27] MEDS: GABAPENTIN 100 MG CAPSULE PO SCH ×3 (09:54→21:24)
[2017-01-27] MEDS: DILTIAZEM 30 MG TABLET PO SCH ×5 (09:54→21:24)
[2017-01-27] MEDS: APIXABAN 5 MG TABLET PO SCH ×2 (09:54→21:24)
[2017-01-27] MEDS: SPIRONOLACTONE 25 MG TABLET PO SCH ×2 (09:54→21:24)
[2017-01-27] MEDS: FUROSEMIDE 20 MG/2 ML VIAL IV SCH (09:55)
[2017-01-27] MEDS: MULTIVITAMIN LIQUID (CENTRUM) 60 ML BOTTLE PO SCH (09:56)
[2017-01-27] MEDS: DESITIN 4OZ/NYSTATIN 15 GRAM MIXTURE PASTE TOP SCH ×2 (09:56→21:26)
[2017-01-27] MEDS: NYSTATIN POWDER 15 GM BOTTLE TOP SCH ×2 (16:03→21:26)
[2017-01-27] MEDS: FUROSEMIDE 40 MG/4 ML VIAL IV SCH (16:30)
[2017-01-27] MEDS: lamoTRIgine 25 MG TABLET PO SCH (21:24)
[2017-01-27] MEDS: PRAVASTATIN 20 MG TABLET PO SCH (21:24)
[2017-01-27] MEDS: BENZTROPINE 1 MG TABLET PO SCH (21:26)
[2017-01-28] MEDS: INSULIN REGULAR 100 UNIT/ML SUBCUT SCH ×4 (00:11→18:25)
[2017-01-28] MEDS: DILTIAZEM 30 MG TABLET PO SCH ×6 (00:11→21:50)
[2017-01-28] MEDS: MIDAZOLAM 2 MG/2 ML VIAL IV PRN ×2 (00:11→02:56)
[2017-01-28] MEDS: LORazepam 2 MG/1 ML VIAL IV PRN ×3 (00:12→09:40)
[2017-01-28] MEDS: ALBUTEROL/IPRATROPIUM 3 ML NEB RESP TX SCH ×4 (01:49→19:28)
[2017-01-28] MEDS: MORPHINE 2 MG/1 ML SYRINGE IV PRN (02:56)
[2017-01-28 05:43] LABS: Calcium 8.5 MG/DL (8.5-10.1); Magnesium 2.7 MG/DL (1.8-2.4); Osmolality,Calculated 296.3 MOS/KG (273-304); Potassium 4.4 MMOL/L (3.5-5.1)
[2017-01-28] MEDS: LEVOTHYROXINE 150 MCG TABLET PO SCH (06:00)
--- NOTE | 2017-01-28 06:35 | XRay Report ---
Exam: XR chest 1V portable Date: 01/28/2017 4:00 AM Indication: Follow-up ventilator respiratory failure Comparison: 01/27/2017 Technical: AP portable Findings: Endotracheal tube is at the level aortic knob. Nasogastric tube and left-sided cardiac pacing device are unchanged. Low volume effusions and bibasilar atelectatic change present. No pneumothorax. Mediastinum is otherwise intact. Mild cardiac enlargement Impression: 1. Stable appearance of life support tubing 2. Persistent bibasilar atelectatic change infiltrates and effusions without significant interval change PROCEDURE INTERPRETED AT [facility] DEPARTMENT OF RADIOLOGY Final Report Signed by: Dr. Km Cintron
--- NOTE | 2017-01-28 07:28 | EKG Report ---
Stationary ECG Study [facility] Test Date: 01/28/2017 7:26:45 AM Pat Name: MICKIE RODAS Department: Room: 124 Gender: F Boat Master: RAIN : 1955 Requested by: Danna Mcbride Order Number: [id number] Reading MD: GRICELDA OTT Intervals [place] Rate: 104 P: 999 TN: 0 QRS: 105 QRSD: 94 T: 94 QT: 319 QTc: 380 Interpretive Statements ATRIAL FLUTTER/COARSE ATRIAL FIBRILLATION WITH RAPID VENTRICULAR RESPONSE WITH ABERRANT CONDUCTION OR VENTRICULAR PREMATURE COMPLEXES at 104 bpm RIGHT AXIS DEVIATION LOW QRS VOLTAGE IN PRECORDIAL LEADS Electronically Signed On 01-28-17 08:50:19 CDT by GRICELDA OTT [id number]
--- NOTE | 2017-01-28 07:52 | Pulmonology Progress Note ---
Pulmonary - PN: Subj Interval history: Patient is a 61-year-old white lady that is very obese and likely has some COPD. She has a pacemaker and has diastolic heart failure. She has a history of hypertension and sleep apnea. She came in in respiratory failure and is on the ventilator. She was having considerable bronchospasm but is much better now. She was started on some CPAP trials yesterday and is doing fairly well. She is more alert today. Her oxygenation has been adequate. She is tolerating stage III of the weaning protocol. She still has atrial fibrillation. Her chest x-ray still has bilateral infiltrates. Exam (Progress Note) - Constitutional Vitals: Period Temp Pulse Resp BP Sys/Wisdom Pulse Ox Last 24 Hr 96.3 F-98 F 71-121 12-26 97-151/54-98 92-99 Exam: General appearance: no acute distress (She is more alert today and looks reasonably comfortable.), morbidly obese - Head Head exam: Present: normal inspection, normocephalic - Eye Eye exam: Present: EOMI. Absent: scleral icterus Pupils: Present: FARA - ENT ENT exam: Present: other (ET tube is in good position) - Neck Neck exam: Present: normal inspection. Absent: lymphadenopathy, thyromegaly - Respiratory Respiratory exam: Present: She has good breath sounds bilaterally and her wheezing is markedly decreased. She has some diminished breath sounds in the bases. She still has some rhonchi present. - Cardiovascular Cardiovascular exam: Present: She has an irregularly irregular rhythm with a heart rate around 100. - GI/Abdominal GI/Abdominal exam: Present: normal bowel sounds, soft. Absent: organomegaly, tenderness - Extremities Exam Extremities exam: Present: other (She does have rather large extremities. Her leg swelling is a little better.). Absent: calf tenderness, edema - Neurological Exam Neurological exam: Present: altered (She is more alert today.) - Skin Skin exam: Present: warm, dry, erythema (She has some redness on her legs) Results - Labs CBC & BMP: 01/26/17 03:58 01/28/17 04:42 - Diagnostic Findings Procedure: Chest x-ray: image reviewed by me, report reviewed by me (Chest x- ray shows cardiomegaly and bilateral infiltrates.) Assessment and Plan (1) Congestive heart failure Status: Acute Assessment and plan: The patient has good left ventricular function but does have some diastolic dysfunction. She is in atrial fibrillation now. She is still losing some weight and has good urine output. Current Visit: Yes (2) Renal insufficiency Status: Acute Assessment and plan: Patient has a creatinine of 0.9 today. Current Visit: Yes (3) Morbid obesity Status: Acute Assessment and plan: The patient has a BMI of 75 Current Visit: Yes (4) Pickwickian syndrome Status: Chronic Assessment and plan: The patient likely has chronic CO2 retention. She is doing CPAP fairly well however. Current Visit: Yes (5) Respiratory failure Status: Acute Assessment and plan: Patient comes in with respiratory failure with both hypoxemia and CO2 retention. She is now on the ventilator. She is doing fairly well with CPAP trials. Current Visit: Yes (6) COPD (chronic obstructive pulmonary disease) Status: Acute Assessment and plan: Patient is a smoker and is wheezing and likely has significant COPD. Her wheezing is much better and she is responding to therapy. We will continue with vigorous respiratory therapy. Current Visit: Yes
[2017-01-28] MEDS: FUROSEMIDE 20 MG/2 ML VIAL IV SCH (08:07)
[2017-01-28] MEDS: SPIRONOLACTONE 25 MG TABLET PO SCH ×2 (08:07→21:39)
[2017-01-28] MEDS: FLUCONAZOLE 200 MG TABLET PO SCH (08:08)
[2017-01-28] MEDS: MULTIVITAMIN LIQUID (CENTRUM) 60 ML BOTTLE PO SCH (08:08)
[2017-01-28] MEDS: NYSTATIN POWDER 15 GM BOTTLE TOP SCH ×2 (08:09→21:41)
[2017-01-28] MEDS: DESITIN 4OZ/NYSTATIN 15 GRAM MIXTURE PASTE TOP SCH ×2 (08:09→21:41)
[2017-01-28] MEDS: APIXABAN 5 MG TABLET PO SCH ×2 (08:15→21:37)
[2017-01-28] MEDS: GABAPENTIN 100 MG CAPSULE PO SCH ×3 (08:15→21:38)
[2017-01-28] MEDS: methylPREDNISolone SOD SUC 40 MG/1 ML VIAL IV SCH ×2 (09:02→21:46)
--- NOTE | 2017-01-28 09:25 | Discharge Summary ---
Hospital Course - Hospital Course Hospital Course: Mrs Norton presented with acute on chronic hypoxic and hyprcapnic respiratory failure and is being transferred to LTAC today for vent weaning. She also has yeast infection beneath her pannus. New diagnosis of atrial flutter, rate controlled with oral dilt, Eliquis started. Hypokalemia which has improved. Morbid obesity, CHF, LISSETT, OHS. She is on tube feeding diet. Dr Eduardo will be her attending at LTAC. - Time spent with patient Time with patient DS: Greater than 30 minutes (examine, discharge planning, medicine reconciliation, documentation took 40 minutes.) Diagnosis - Discharge Diagnosis (1) Respiratory failure Status: Acute (2) Hypokalemia Status: Acute (3) Congestive heart failure Status: Acute (4) Morbid obesity Status: Chronic (5) Hypoventilation syndrome Status: Chronic (6) COPD (chronic obstructive pulmonary disease) Status: Acute (7) Yeast infection involving the vagina and surrounding area Status: Acute (8) Atrial flutter Status: Acute Discharge Plan - Discharge Data Disposition: Disch/Xfer to [facility] Condition at Discharge: Guarded Discharge Diet: other (tube feeding) Activity: as per physical therapy, other (intubated) - Discharge Medications New Albuterol Neb [Proventil Neb] 2.5 mg RESP TX RT Q1H PRN #0 PRN Reason: Shortness Of Breath/Wheezing Apixaban [Eliquis] 5 mg PO BID tablet Benztropine Tab [Cogentin Tab] 2 mg PO BEDTIME tablet Clotrimazole 1% Cream [Lotrimin 1% Cream] 1 applic TOP BID #90 applic Dextrose 50% [D50] 25 gm IV PRN PRN #0 vial PRN Reason: Hypoglycemia with IV access Fluconazole Tab [Diflucan Tab] 200 mg PO DAILY tablet Furosemide Inj [Lasix Inj] 20 mg IV DAILY vial Glucagon 1 mg IM PRN PRN #0 vial PRN Reason: Hypoglycemia w/o IV access Insulin Regular [HumuLIN R] See Protocol SUBCUT Q6HR unit LORazepam INJ [Ativan Inj] 2 mg IV Q4H PRN #0 vial PRN Reason: Agitation Levothyroxine Tab [Synthroid Tab] 150 mcg PO DAILY@0700 tablet Magnesium Sulf Ming [Magnesium Sulfate Inj] 4 gm IV .PER PROTOCOL PRN #0 PRN Reason: Per Protocol Midazolam [Versed] 2 mg IV Q1H PRN #0 vial PRN Reason: Sedation Midazolam [Versed] 1 mg IV Q1H PRN #0 vial PRN Reason: Sedation Morphine Inj 2 mg IV Q3H PRN #0 syringe PRN Reason: Pain Severe (8-10) Nystatin Powder [Mycostatin Powder] 1 applic TOP BID applic Ondansetron Inj [Zofran Inj] 4 mg IV Q4H PRN #0 vial PRN Reason: Nausea Pravastatin [Pravachol] 20 mg PO BEDTIME tablet Ziprasidone Inj [Geodon Inj] 20 mg IM Q6H PRN #0 vial PRN Reason: Agitation acetaZOLAMIDE INJ [Diamox Inj] 250 mg IV Q12H vial lamoTRIgine [LaMICtal Tab] 50 mg PO BEDTIME tablet Albuterol/Ipratropium Neb [Duoneb] 3 ml RESP TX RT Q6H Diltiazem Tab [Cardizem Tab] 60 mg PO Q6HR tablet Gabapentin Cap/Tab [Neurontin Cap/Tab] 100 mg PO TID capsule Magnesium Sulf Ming [Magnesium Sulfate Inj] 2 gm IV .PER PROTOCOL PRN #0 PRN Reason: Per Protocol Multivitamin Liquid (Centrum) [Centrum Liquid] 15 ml PO DAILY bottle Spironolactone [Aldactone] 25 mg PO BID tablet methylPREDNISolone SOD SUC INJ [SoluMEDROL] 30 mg IV Q12H vial Discontinued Levothyroxine Tab [Synthroid Tab] 150 mcg PO DAILY@0700 lamoTRIgine [Lamotrigine Tab] 50 mg PO BEDTIME Trazodone HCl 100 mg PO BEDTIME Pravastatin [Pravachol] 20 mg PO BEDTIME Losartan/Hydrochlorothiazide [Losartan-Hctz 100-25 mg Tab] 1 each PO DAILY Albuterol Inhaler [Proventil Inhaler] 2 puff INH Q6H PRN PRN Reason: Shortness Of Breath/Wheezing risperiDONE [Risperidone] 2 mg PO QAM clonazePAM [Clonazepam] 0.5 mg PO BID PRN PRN Reason: Anxiety Potassium Chloride 20 meq PO TID Gabapentin [Gabapentin] 10 mg PO TID Pramipexole [Mirapex] 0.25 mg PO BEDTIME Benztropine Mesylate 2 mg PO BEDTIME Fluticasone/Salmeterol 250-50 [Advair 250-50] 1 puff INH BID Asenapine Maleate [Saphris] 10 mg PO BID - Follow Up or Referral - Forms/Instructions Exam - Constitutional Vitals: Period Temp Pulse Resp BP Sys/Wisdom Pulse Ox Last 24 Hr 96.3 F-98 F 71-121 12-26 97-151/54-98 92-99 General appearance: no acute distress (awake and alert), morbidly obese - Head Head exam: Present: normocephalic, atraumatic - Eye Eye exam: Present: EOMI. Absent: scleral icterus - Respiratory Respiratory exam: Present: clear to auscultation bilaterally - Cardiovascular Cardiovascular exam: Present: regular rate and rhythm, tachycardia - GI/Abdominal GI/Abdominal exam: Present: normal bowel sounds, soft, other (beneath pannus the area of redness from yeast is improved, but she has some shallow open areas that have developed. see wound care nures note for details.). Absent: tenderness - Extremities Exam Extremities exam: Present: edema - Neurological Exam Neurological exam: Present: other (cooperative, follows commands) - Skin Skin exam: Present: warm, dry Discharge Results Procedures and tests throughout hospitalization: Pending Orders 01/29/17 04:00 Magnesium MOTH Phosphorous MOTH Prealbumin MOTH Labs on day of discharge: Labs from last 24 hours 01/28/17 01/28/17 01/28/17 05:48 04:42 00:02 Sodium 141 Potassium 4.4 Chloride 100 Carbon Dioxide 32 Anion Gap 13.4 BUN 53 H Creatinine 0.90 GFR Calculation 106 BUN/Creatinine Ratio 58.00 H Glucose 142 H POC Glucose 136 H 152 H Calculated Osmolality 296.3 Calcium 8.5 Magnesium 2.7 H 01/27/17 01/27/17 17:34 11:14 Sodium Potassium Chloride Carbon Dioxide Anion Gap BUN Creatinine GFR Calculation BUN/Creatinine Ratio Glucose POC Glucose 139 H 125 H Calculated Osmolality Calcium Magnesium DS: Provider Date of admission: 01/22/17 17:02 Primary care physician: . No PCP Attending physician on admission: Daniel Asher MD Consults: 01/22/17 18:29 Consult to Physician [CONS] Routine Comment: vent change management director Provider: Chago Eduardo Consult to Specialist Group: Pulmonology When should Consulting Provider be notified: In am 01/22/17 18:34 Consult to Wound Care - [place] [CONS] Routine Reason for Wound Care: Wound Care Management 01/23/17 08:35 Consult to Dietitian [CONS] Routine Reason for Dietitian: TF-Initiate/Manage Consult to Sleep Center [CONS] Routine Reason for Sleep Center: Sleep Center Physician Consult Comment: [place] 01/23/17 14:13 Consult to Case Mgmt/Social Srvs [CONS] Routine Reason for Case Mgmt/Social Srvs: LTAC Discharging clinician: Danna Mcbride MD
[2017-01-28] MEDS: CLOTRIMAZOLE 1% CREAM 15 GM TUBE TOP SCH ×2 (12:35→21:41)
[2017-01-28] MEDS: BENZTROPINE 1 MG TABLET PO SCH (21:37)
[2017-01-28] MEDS: PRAVASTATIN 20 MG TABLET PO SCH (21:37)
[2017-01-28] MEDS: lamoTRIgine 25 MG TABLET PO SCH (21:38)
[2017-01-29] MEDS: ALBUTEROL/IPRATROPIUM 3 ML NEB RESP TX SCH ×3 (00:04→12:44)
[2017-01-29] MEDS: INSULIN REGULAR 100 UNIT/ML SUBCUT SCH ×3 (00:44→12:43)
[2017-01-29] MEDS: DILTIAZEM 30 MG TABLET PO SCH ×3 (00:50→08:37)
[2017-01-29 06:08] LABS: Magnesium 2.8 MG/DL (1.8-2.4); Phosphorous 3.5 MG/DL (2.5-4.9); Prealbumin 46.5 MG/DL (20-40)
[2017-01-29] MEDS: LEVOTHYROXINE 150 MCG TABLET PO SCH (06:11)
--- NOTE | 2017-01-29 07:26 | Pulmonology Progress Note ---
Pulmonary - PN: Subj Interval history: Patient is a 61-year-old white lady that is very obese and likely has some COPD. She has a pacemaker and has diastolic heart failure. She has a history of hypertension and sleep apnea. She came in in respiratory failure and is on the ventilator. She was having considerable bronchospasm but is much better now. She was started on some CPAP trials yesterday and is doing fairly well. She is more alert today. Her oxygenation has been adequate. She is tolerating stage III of the weaning protocol. She still has atrial fibrillation. Her chest x-ray still has bilateral infiltrates. The patient's x-ray still has bilateral infiltrates. She will be transferred to [facility] today and will continue weaning and supportive care. Exam (Progress Note) - Constitutional Vitals: Period Temp Pulse Resp BP Sys/Wisdom Pulse Ox Last 24 Hr 97.7 F-98.2 F 71-128 12-29 94-148/58-90 91-98 Exam: General appearance: no acute distress (She is more alert today and looks reasonably comfortable.), morbidly obese - Head Head exam: Present: normal inspection, normocephalic - Eye Eye exam: Present: EOMI. Absent: scleral icterus Pupils: Present: FARA - ENT ENT exam: Present: other (ET tube is in good position) - Neck Neck exam: Present: normal inspection. Absent: lymphadenopathy, thyromegaly - Respiratory Respiratory exam: Present: She has good breath sounds bilaterally and her wheezing is markedly decreased. Her lungs do sound better and she is moving air a little better. - Cardiovascular Cardiovascular exam: Present: She has an irregularly irregular rhythm with a heart rate around 100. - GI/Abdominal GI/Abdominal exam: Present: normal bowel sounds, soft. Absent: organomegaly, tenderness - Extremities Exam Extremities exam: Present: other (She does have rather large extremities. Her leg swelling is a little better.). Absent: calf tenderness, edema - Neurological Exam Neurological exam: Present: altered (She is more alert today.) - Skin Skin exam: Present: warm, dry, erythema (She has some redness on her legs) Results - Labs CBC & BMP: 01/26/17 03:58 01/28/17 04:42 Assessment and Plan (1) Congestive heart failure Status: Acute Assessment and plan: The patient has good left ventricular function but does have some diastolic dysfunction. She is in atrial fibrillation now. She is still losing some weight and has good urine output. Current Visit: Yes (2) Renal insufficiency Status: Acute Assessment and plan: Patient has a creatinine of 0.9 today. She still has good urine output. Current Visit: Yes (3) Morbid obesity Status: Chronic Assessment and plan: The patient has a BMI of 75 Current Visit: Yes (4) Pickwickian syndrome Status: Chronic Assessment and plan: The patient likely has chronic CO2 retention. She is doing CPAP fairly well however. Current Visit: Yes (5) Respiratory failure Status: Acute Assessment and plan: Patient comes in with respiratory failure with both hypoxemia and CO2 retention. She is now on the ventilator. She is doing fairly well with CPAP trials. Current Visit: Yes (6) COPD (chronic obstructive pulmonary disease) Status: Acute Assessment and plan: Patient is a smoker and is wheezing and likely has significant COPD. Her wheezing is much better and she is responding to therapy. We will continue with vigorous respiratory therapy. Hopefully she can be weaned soon once her x- ray clears. Current Visit: Yes
[2017-01-29] MEDS: GABAPENTIN 100 MG CAPSULE PO SCH (08:37)
[2017-01-29] MEDS: FLUCONAZOLE 200 MG TABLET PO SCH (08:37)
[2017-01-29] MEDS: SPIRONOLACTONE 25 MG TABLET PO SCH (08:37)
[2017-01-29] MEDS: DESITIN 4OZ/NYSTATIN 15 GRAM MIXTURE PASTE TOP SCH (08:38)
[2017-01-29] MEDS: NYSTATIN POWDER 15 GM BOTTLE TOP SCH (08:38)
[2017-01-29] MEDS: CLOTRIMAZOLE 1% CREAM 15 GM TUBE TOP SCH (08:38)
[2017-01-29] MEDS: FUROSEMIDE 20 MG/2 ML VIAL IV SCH (08:38)
[2017-01-29] MEDS: APIXABAN 5 MG TABLET PO SCH (08:38)
[2017-01-29] MEDS: MULTIVITAMIN LIQUID (CENTRUM) 60 ML BOTTLE PO SCH (08:39)
[2017-01-29] MEDS: methylPREDNISolone SOD SUC 40 MG/1 ML VIAL IV SCH (09:01)
[2017-01-29 14:12] VITALS: BP 112/80
== END 2017-01-29 13:48 | DRG 207 ==
LOC: EDBD → EDUNIT# → N.ED 16:03 → SUATTDRO 17:02 → N.EDINP 17:02 → N.CC 17:28
PROVIDERS: ADMIT Internal Medicine; ATTEND Internal Medicine

== ENCOUNTER 2017-06-23 10:46 | Inpatient (IN) ==
[2017-06-23] MEDS ORDERED: PIPERACILLIN/TAZOBACTAM 3,375 MG in SODIUM CHLORIDE 0.9% 100 ML IV STA (11:53)
[2017-06-23 12:01] LABS: Basophils # 0.1 10*3/uL (0.0-0.2); Basophils % 0.6 % (0.0-0.8); Eosinophils # 0.2 10*3/uL (0.0-0.87); Eosinophils % 1.6 % (0.00-10.9); Hematocrit 46.9 VOL% (35.7-47.0); Hemoglobin 14.7 GM/DL (12.0-16.0); Immature Granulocytes % 0.7 %; Immature Granulocytes Absolute 0.09 #; Lymphocytes # 3.4 10*3/uL (1.4-4.0); Lymphocytes % 27.1 % (21.3-54.2); Mean Corpuscular HGB Conc 31.3 GM/DL (32-36); Mean Corpuscular Hemoglobin 30 PG (27-34); Mean Platelet Volume 10.7 FL (9.6-12.0); Monocytes # 0.7 10*3/uL (0.11-0.8); Monocytes % 5.5 % (1.7-12.7); NRBC # 0.02 10*3/uL; Neutrophils # 8.2 10*3/uL (1.4-7.4); Neutrophils % 64.5 % (38.7-73.9); Platelet Count 161 T/CUMM (130-400); Red Blood Count 4.99 MC/CUMM (3.8-5.5); Red Cell Distribution Width 14.5 % (9.3-17.3); White Blood Count 12.7 T/CUMM (4-12)
[2017-06-23 12:06] LABS: PT Patient Result 10.3 SECS
[2017-06-23 12:08] LABS: Lactic Acid 0.7 MMOL/L (0.4-2.0)
[2017-06-23 12:15] LABS: Alanine Aminotransferase 16 U/L (13-56); Albumin 3.2 G/DL (3.4-5.0); Alkaline Phosphatase 138 U/L (45-117); Aspartate Amino Transferase 13 U/L (0-37); Blood Urea Nitrogen 25 MG/DL (7-18); Calcium 8.9 MG/DL (8.5-10.1); Glucose 68 MG/DL (74-106); Magnesium 1.8 MG/DL (1.8-2.4); Osmolality,Calculated 280.4 MOS/KG (273-304); Potassium 4.7 MMOL/L (3.5-5.1); Sodium 140 MMOL/L (136-145); Total Protein 6.2 G/DL (6.4-8.3); Troponin I Only < 0.015 NG/ML (0.00-0.045)
[2017-06-23 12:45] LABS: Apearance,Urine CLOUDY (Clear); Bacteria,Urine Many /HPF (Few); Bilirubin,Urine Negative (Negative); Blood, Urine Negative (Negative); Glucose,Urine (UA) Negative (Negative); Ketones,Urine Negative (Negative); Mucus,Urine Occasional /LPF (Occasional); Nitrite,Urine Negative (Negative); Protein,Urine Negative; Urine Color Dark yellow (Yellow); Urine Urobilinogen < 2.0 EU/DL (0.2-1.0); WBC,Urine 2 /HPF (0-6)
[2017-06-23] MEDS ORDERED: DEXTROSE 50% 25 GM/50 ML VIAL IV STA (12:45)
[2017-06-23] MEDS ORDERED: PIPERACILLIN/TAZOBACTAM 3,375 MG VIAL IV ONE (12:52)
[2017-06-23 13:01] LABS: Barbiturates Screen,Urine Negative (Negative); Benzodiazepines Screen,Urine Negative (Negative); Cannabinoid Screen,Urine Negative (Negative); Opiate Screen,Urine Positive (Negative); Phencyclidine Screen,Urine Negative (Negative)
[2017-06-23] MEDS ORDERED: DEXTROSE 50% 25 GM/50 ML SYRINGE IV ONE (13:11)
[2017-06-23 13:47] LABS: Allen Test Positive
[2017-06-23 13:48] LABS: ABG Base Excess 5.7 MMOL/L (-2.5-2.5); ABG HCO3 36.7 MMOL/L (20-26); ABG Oxygen Saturation 94.5 % (95-100); ABG PH 7.236 (7.35-7.45); ABG PO2 77.4 MM HG (80-95); ABG TCO2 39.4 MMOL/L (23-27)
[2017-06-23 13:49] LABS: ABG PCO2 88.4 MM HG (35-48)
[2017-06-23] MEDS ORDERED: NALOXONE 0.4 MG/ML VIAL ONE (13:52)
[2017-06-23] MEDS ORDERED: NALOXONE 0.4 MG/ML VIAL IV ONE (14:00)
[2017-06-23] MEDS ORDERED: ETOMIDATE 20 MG/10 ML VIAL IV STA (14:14)
[2017-06-23] MEDS ORDERED: VECURONIUM 10 MG VIAL IV STA (14:15)
[2017-06-23] MEDS ORDERED: PROPOFOL 1,000 MG/100 ML BOTTLE IV ONE (14:21)
[2017-06-23] MEDS: PROPOFOL 1,000 MG/100 ML BOTTLE IV SCH ×3 (14:30→23:22)
[2017-06-23] MEDS ORDERED: VECURONIUM 10 MG VIAL IV ONE (15:50)
[2017-06-23] MEDS ORDERED: ETOMIDATE 20 MG/10 ML VIAL IV ONE (15:50)
[2017-06-23] MEDS: PIPERACILLIN/TAZOBACTAM 3,375 MG in SODIUM CHLORIDE 0.9% 100 ML IV SCH ×2 (16:44→23:22)
[2017-06-23] MEDS ORDERED: ONDANSETRON 4 MG/2 ML VIAL IV PRN (17:04)
[2017-06-23] MEDS ORDERED: ALBUTEROL/IPRATROPIUM 3 ML NEB RESP TX PRN (17:04)
[2017-06-23] MEDS ORDERED: ACETAMINOPHEN 325 MG TABLET PO PRN (17:04)
[2017-06-23] MEDS ORDERED: MORPHINE 2 MG/1 ML SYRINGE IV PRN (17:04)
[2017-06-23 17:19] LABS: Allen Test Positive; Pt O2 Delivery Device Ventilator
[2017-06-23 17:24] LABS: ABG Base Excess 5.7 MMOL/L (-2.5-2.5); ABG HCO3 29.6 MMOL/L (20-26); ABG Oxygen Saturation 99.4 % (95-100); ABG PH 7.342 (7.35-7.45); ABG TCO2 29.4 MMOL/L (23-27)
[2017-06-23] MEDS: FUROSEMIDE 40 MG/4 ML VIAL IV SCH (17:55)
[2017-06-23] MEDS: methylPREDNISolone SOD SUC 40 MG/1 ML VIAL IV SCH (19:01)
[2017-06-23] MEDS: APIXABAN 5 MG TABLET PO SCH (20:25)
[2017-06-23] MEDS: BENZTROPINE 1 MG TABLET PO SCH (20:25)
[2017-06-24] MEDS: PROPOFOL 1,000 MG/100 ML BOTTLE IV SCH ×9 (01:30→23:49)
[2017-06-24] MEDS: methylPREDNISolone SOD SUC 40 MG/1 ML VIAL IV SCH ×3 (03:10→18:36)
[2017-06-24 03:17] LABS: Allen Test Positive; Pt O2 Delivery Device Ventilator
[2017-06-24 03:21] LABS: ABG Base Excess 5.2 MMOL/L (-2.5-2.5); ABG HCO3 29.1 MMOL/L (20-26); ABG Oxygen Saturation 97.7 % (95-100); ABG PCO2 40.4 MM HG (35-48); ABG PH 7.476 (7.35-7.45); ABG PO2 95.6 MM HG (80-95); ABG TCO2 30.4 MMOL/L (23-27)
[2017-06-24 05:04] LABS: Basophils % 0.2 % (0.0-0.8); Eosinophils % 0.1 % (0.00-10.9); Hematocrit 46.3 VOL% (35.7-47.0); Hemoglobin 14.8 GM/DL (12.0-16.0); Immature Granulocytes % 0.5 %; Immature Granulocytes Absolute 0.04 #; Lymphocytes # 2.8 10*3/uL (1.4-4.0); Lymphocytes % 33.9 % (21.3-54.2); Mean Corpuscular Hemoglobin 29 PG (27-34); Mean Corpuscular Volume 91.7 FL (87-102); Mean Platelet Volume 10.8 FL (9.6-12.0); Monocytes # 0.1 10*3/uL (0.11-0.8); Monocytes % 1.1 % (1.7-12.7); Neutrophils # 5.3 10*3/uL (1.4-7.4); Neutrophils % 64.2 % (38.7-73.9); Platelet Count 166 T/CUMM (130-400); Red Blood Count 5.05 MC/CUMM (3.8-5.5); Red Cell Distribution Width 14.5 % (9.3-17.3); White Blood Count 8.3 T/CUMM (4-12)
[2017-06-24 05:48] LABS: Albumin 3.1 G/DL (3.4-5.0); Bilirubin,Total 0.9 MG/DL (0.2-1.0); Calcium 9.3 MG/DL (8.5-10.1); Magnesium 1.6 MG/DL (1.8-2.4); Osmolality,Calculated 285.3 MOS/KG (273-304); Potassium 3.9 MMOL/L (3.5-5.1); Risk Ratio 3.25; Thyroid Stimulating Hormone 0.456 uIU/ml (0.358-3.74); Total Protein 6.1 G/DL (6.4-8.3); VLDL CHOLESTEROL 20.4 MG/DL
[2017-06-24] MEDS: LEVOTHYROXINE 175 MCG TABLET PO SCH (06:25)
[2017-06-24] MEDS ORDERED: MAGNESIUM SULF RIDER 2 GM in PREMIX 1 EACH IV ONE (08:37)
[2017-06-24] MEDS: FUROSEMIDE 40 MG/4 ML VIAL IV SCH ×2 (08:43→18:41)
[2017-06-24] MEDS: APIXABAN 5 MG TABLET PO SCH ×2 (08:49→20:59)
[2017-06-24] MEDS: CHOLECALCIFEROL 1,000 UNIT TABLET PO SCH (08:50)
[2017-06-24] MEDS: ATORVASTATIN 10 MG TABLET PO SCH (08:50)
[2017-06-24] MEDS: lamoTRIgine 25 MG TABLET PO SCH (08:50)
[2017-06-24] MEDS: CETIRIZINE 10 MG TABLET PO SCH (08:51)
[2017-06-24] MEDS: PIPERACILLIN/TAZOBACTAM 3,375 MG in SODIUM CHLORIDE 0.9% 100 ML IV SCH ×2 (08:59→18:46)
[2017-06-24] MEDS: ENOXAPARIN 40 MG/0.4 ML SYRINGE SUBCUT SCH (11:41)
[2017-06-24] MEDS: PANTOPRAZOLE 40 MG VIAL IV SCH (11:42)
[2017-06-24] MEDS ORDERED: PIPERACILLIN/TAZOBACTAM 3,375 MG in SODIUM CHLORIDE 0.9% 100 ML IV ONE (15:23)
[2017-06-24] MEDS: BENZTROPINE 1 MG TABLET PO SCH (21:08)
[2017-06-25] MEDS: PIPERACILLIN/TAZOBACTAM 3,375 MG in SODIUM CHLORIDE 0.9% 100 ML IV SCH ×3 (00:35→18:35)
[2017-06-25] MEDS: methylPREDNISolone SOD SUC 40 MG/1 ML VIAL IV SCH ×3 (02:03→18:41)
[2017-06-25] MEDS: PROPOFOL 1,000 MG/100 ML BOTTLE IV SCH ×6 (02:11→23:02)
[2017-06-25 03:59] LABS: ABG Base Excess 6.7 MMOL/L (-2.5-2.5); ABG HCO3 30.5 MMOL/L (20-26); ABG Oxygen Saturation 98.9 % (95-100); ABG PCO2 43.1 MM HG (35-48); ABG PH 7.468 (7.35-7.45); ABG TCO2 26.4 MMOL/L (23-27); Allen Test Positive; Pt O2 Delivery Device Ventilator
[2017-06-25] MEDS: LEVOTHYROXINE 175 MCG TABLET PO SCH (06:06)
[2017-06-25 06:48] LABS: Basophils % 0.2 % (0.0-0.8); Hematocrit 44.3 VOL% (35.7-47.0); Hemoglobin 15.6 GM/DL (12.0-16.0); Immature Granulocytes % 0.7 %; Immature Granulocytes Absolute 0.06 #; Lymphocytes # 2.2 10*3/uL (1.4-4.0); Lymphocytes % 24.4 % (21.3-54.2); Mean Corpuscular HGB Conc 35.2 GM/DL (32-36); Mean Corpuscular Hemoglobin 31 PG (27-34); Mean Corpuscular Volume 87.9 FL (87-102); Mean Platelet Volume 10.8 FL (9.6-12.0); Monocytes # 0.3 10*3/uL (0.11-0.8); Monocytes % 3.1 % (1.7-12.7); Neutrophils # 6.4 10*3/uL (1.4-7.4); Neutrophils % 71.6 % (38.7-73.9); Platelet Count 164 T/CUMM (130-400); Red Blood Count 5.04 MC/CUMM (3.8-5.5); Red Cell Distribution Width 14.1 % (9.3-17.3); White Blood Count 8.9 T/CUMM (4-12)
[2017-06-25 07:19] LABS: Calcium 8.1 MG/DL (8.5-10.1); Osmolality,Calculated 274.4 MOS/KG (273-304); Potassium 3.1 MMOL/L (3.5-5.1)
[2017-06-25] MEDS: FUROSEMIDE 40 MG/4 ML VIAL IV SCH ×2 (07:52→18:36)
[2017-06-25] MEDS ORDERED: LABETALOL 20 MG/4 ML SYRINGE IV ONE (08:28)
[2017-06-25] MEDS ORDERED: POTASSIUM CHLORIDE 20 MEQ/15 ML UDCUP PO ONE (08:29)
[2017-06-25] MEDS: PANTOPRAZOLE 40 MG VIAL IV SCH (09:10)
[2017-06-25] MEDS: ENOXAPARIN 40 MG/0.4 ML SYRINGE SUBCUT SCH (09:15)
[2017-06-25] MEDS: CHOLECALCIFEROL 1,000 UNIT TABLET PO SCH (09:16)
[2017-06-25] MEDS: CETIRIZINE 10 MG TABLET PO SCH (09:16)
[2017-06-25] MEDS: APIXABAN 5 MG TABLET PO SCH ×2 (09:17→22:35)
[2017-06-25] MEDS: ATORVASTATIN 10 MG TABLET PO SCH (09:17)
[2017-06-25] MEDS: lamoTRIgine 25 MG TABLET PO SCH (09:17)
[2017-06-25] MEDS: ZINC OXIDE PASTE 113 GM TUBE TOP SCH ×2 (09:18→22:35)
[2017-06-25] MEDS ORDERED: MAGNESIUM SULF RIDER 2 GM in PREMIX 1 EACH IV ONE (10:31)
[2017-06-25] MEDS ORDERED: DILTIAZEM CD 180 MG CAPSULE PO SCH (11:30)
[2017-06-25] MEDS ORDERED: POTASSIUM CHLORIDE 20 MEQ TABLET PO SCH (11:30)
[2017-06-25] MEDS: AMINOPHYLLINE 1,000 MG in SODIUM CHLORIDE 0.9% 460 ML IV SCH (12:10)
[2017-06-25] MEDS: hydroCHLOROthiazide 12.5 MG CAPSULE PO SCH (12:34)
[2017-06-25] MEDS: LOSARTAN 50 MG TABLET PO SCH (12:34)
[2017-06-25] MEDS: DILTIAZEM 60 MG TABLET PO SCH ×2 (14:35→22:33)
[2017-06-25] MEDS: VANCOMYCIN INJ 2,000 MG in SODIUM CHLORIDE 0.9% 500 ML IV SCH (14:37)
[2017-06-25] MEDS: POTASSIUM CHLORIDE 20 MEQ/15 ML UDCUP PER TUBE SCH (22:35)
[2017-06-25] MEDS: BENZTROPINE 1 MG TABLET PO SCH (22:39)
[2017-06-26] MEDS: VANCOMYCIN INJ 2,000 MG in SODIUM CHLORIDE 0.9% 500 ML IV SCH ×2 (01:05→13:28)
[2017-06-26] MEDS: PIPERACILLIN/TAZOBACTAM 3,375 MG in SODIUM CHLORIDE 0.9% 100 ML IV SCH ×4 (01:06→16:27)
[2017-06-26] MEDS: PROPOFOL 1,000 MG/100 ML BOTTLE IV SCH ×9 (01:11→18:37)
[2017-06-26] MEDS: methylPREDNISolone SOD SUC 40 MG/1 ML VIAL IV SCH ×3 (01:30→18:30)
[2017-06-26 03:50] LABS: ABG Base Excess 4.2 MMOL/L (-2.5-2.5); ABG HCO3 28.1 MMOL/L (20-26); ABG Oxygen Saturation 98.2 % (95-100); ABG PCO2 37.4 MM HG (35-48); ABG PH 7.477 (7.35-7.45); ABG TCO2 23.6 MMOL/L (23-27); Pt O2 Delivery Device Ventilator
[2017-06-26] MEDS: AMINOPHYLLINE 1,000 MG in SODIUM CHLORIDE 0.9% 460 ML IV SCH ×2 (04:15→21:15)
[2017-06-26 06:01] LABS: Basophils % 0.1 % (0.0-0.8); Hematocrit 40.7 VOL% (35.7-47.0); Immature Granulocytes % 0.5 %; Immature Granulocytes Absolute 0.05 #; Lymphocytes # 1.4 10*3/uL (1.4-4.0); Lymphocytes % 14.1 % (21.3-54.2); Mean Corpuscular HGB Conc 34.4 GM/DL (32-36); Mean Corpuscular Hemoglobin 31 PG (27-34); Mean Corpuscular Volume 89.8 FL (87-102); Mean Platelet Volume 11.7 FL (9.6-12.0); Monocytes # 0.5 10*3/uL (0.11-0.8); Monocytes % 4.9 % (1.7-12.7); Neutrophils % 80.4 % (38.7-73.9); Platelet Count 173 T/CUMM (130-400); Red Blood Count 4.53 MC/CUMM (3.8-5.5); Red Cell Distribution Width 14.3 % (9.3-17.3); White Blood Count 9.9 T/CUMM (4-12)
[2017-06-26] MEDS: LEVOTHYROXINE 175 MCG TABLET PO SCH (06:23)
[2017-06-26 07:00] LABS: Calcium 7.5 MG/DL (8.5-10.1); Osmolality,Calculated 281.8 MOS/KG (273-304); Potassium 3.3 MMOL/L (3.5-5.1)
[2017-06-26] MEDS: FUROSEMIDE 40 MG/4 ML VIAL IV SCH ×2 (08:00→16:00)
[2017-06-26] MEDS: PANTOPRAZOLE 40 MG VIAL IV SCH (09:38)
[2017-06-26] MEDS: APIXABAN 5 MG TABLET PO SCH ×2 (09:38→22:37)
[2017-06-26] MEDS: CHOLECALCIFEROL 1,000 UNIT TABLET PO SCH (09:39)
[2017-06-26] MEDS: POTASSIUM CHLORIDE 20 MEQ/15 ML UDCUP PER TUBE SCH ×2 (09:39→22:37)
[2017-06-26] MEDS: hydroCHLOROthiazide 12.5 MG CAPSULE PO SCH (09:39)
[2017-06-26] MEDS: LOSARTAN 50 MG TABLET PO SCH (09:39)
[2017-06-26] MEDS: CETIRIZINE 10 MG TABLET PO SCH (09:40)
[2017-06-26] MEDS: ATORVASTATIN 10 MG TABLET PO SCH (09:40)
[2017-06-26] MEDS: DILTIAZEM 60 MG TABLET PO SCH ×3 (09:40→22:36)
[2017-06-26] MEDS: lamoTRIgine 25 MG TABLET PO SCH (09:40)
[2017-06-26] MEDS: ENOXAPARIN 40 MG/0.4 ML SYRINGE SUBCUT SCH (09:43)
[2017-06-26] MEDS: ZINC OXIDE PASTE 113 GM TUBE TOP SCH ×2 (10:03→22:36)
[2017-06-26] MEDS: SAPHRIS 10 MG SL SCH (20:32)
[2017-06-26] MEDS: BENZTROPINE 1 MG TABLET PO SCH (22:36)
[2017-06-27] MEDS: PIPERACILLIN/TAZOBACTAM 3,375 MG in SODIUM CHLORIDE 0.9% 100 ML IV SCH ×4 (01:09→23:06)
[2017-06-27] MEDS: VANCOMYCIN INJ 2,000 MG in SODIUM CHLORIDE 0.9% 500 ML IV SCH ×3 (01:09→23:06)
[2017-06-27] MEDS: PROPOFOL 1,000 MG/100 ML BOTTLE IV SCH ×10 (01:45→23:06)
[2017-06-27] MEDS: methylPREDNISolone SOD SUC 40 MG/1 ML VIAL IV SCH ×3 (03:30→18:45)
[2017-06-27 05:33] LABS: Basophils % 0.2 % (0.0-0.8); Hematocrit 42.3 VOL% (35.7-47.0); Hemoglobin 14.6 GM/DL (12.0-16.0); Immature Granulocytes % 1.2 %; Immature Granulocytes Absolute 0.15 #; Lymphocytes # 1.2 10*3/uL (1.4-4.0); Lymphocytes % 9.5 % (21.3-54.2); Mean Corpuscular HGB Conc 34.5 GM/DL (32-36); Mean Corpuscular Hemoglobin 31 PG (27-34); Mean Corpuscular Volume 89.2 FL (87-102); Mean Platelet Volume 11.1 FL (9.6-12.0); Monocytes # 0.5 10*3/uL (0.11-0.8); Monocytes % 4.1 % (1.7-12.7); Neutrophils # 10.8 10*3/uL (1.4-7.4); Platelet Count 169 T/CUMM (130-400); Red Blood Count 4.74 MC/CUMM (3.8-5.5); Red Cell Distribution Width 13.9 % (9.3-17.3); White Blood Count 12.7 T/CUMM (4-12)
[2017-06-27 05:59] LABS: Calcium 7.4 MG/DL (8.5-10.1); Osmolality,Calculated 279.1 MOS/KG (273-304); Potassium 2.6 MMOL/L (3.5-5.1)
[2017-06-27] MEDS: LEVOTHYROXINE 175 MCG TABLET PO SCH (06:10)
[2017-06-27] MEDS: FUROSEMIDE 40 MG/4 ML VIAL IV SCH ×2 (08:05→15:52)
[2017-06-27] MEDS: PANTOPRAZOLE 40 MG VIAL IV SCH (08:30)
[2017-06-27] MEDS: CHOLECALCIFEROL 1,000 UNIT TABLET PO SCH (08:44)
[2017-06-27] MEDS: POTASSIUM CHLORIDE 20 MEQ/15 ML UDCUP PER TUBE SCH ×2 (08:44→20:43)
[2017-06-27] MEDS: DILTIAZEM 60 MG TABLET PO SCH ×3 (08:44→20:43)
[2017-06-27] MEDS: LOSARTAN 50 MG TABLET PO SCH (08:45)
[2017-06-27] MEDS: lamoTRIgine 25 MG TABLET PO SCH (08:45)
[2017-06-27] MEDS: hydroCHLOROthiazide 12.5 MG CAPSULE PO SCH (08:45)
[2017-06-27] MEDS: ATORVASTATIN 10 MG TABLET PO SCH (08:45)
[2017-06-27] MEDS: CETIRIZINE 10 MG TABLET PO SCH (08:45)
[2017-06-27] MEDS: ENOXAPARIN 40 MG/0.4 ML SYRINGE SUBCUT SCH (08:46)
[2017-06-27] MEDS: ZINC OXIDE PASTE 113 GM TUBE TOP SCH ×2 (08:48→20:43)
[2017-06-27] MEDS ORDERED: POTASSIUM CHLORIDE 20 MEQ/15 ML UDCUP PO ONE (10:33)
[2017-06-27] MEDS ORDERED: DEXTROSE 50% 25 GM/50 ML VIAL IV PRN (10:54)
[2017-06-27] MEDS ORDERED: GLUCAGON 1 MG VIAL IM PRN (10:54)
[2017-06-27] MEDS: APIXABAN 5 MG TABLET PO SCH ×2 (11:55→20:43)
[2017-06-27] MEDS: AMINOPHYLLINE 1,000 MG in SODIUM CHLORIDE 0.9% 460 ML IV SCH ×2 (12:11→14:09)
[2017-06-27] MEDS: INSULIN REGULAR 100 UNIT/ML SUBCUT SCH ×2 (14:10→18:42)
[2017-06-27] MEDS: ELECTROLYTE CONCENTRATE 20 ML, TRACE ELEMENTS (5) 1 ML, MULTIVITAMIN INJ 10 ML, POTASSI... IV SCH (18:41)
[2017-06-27] MEDS: BENZTROPINE 1 MG TABLET PO SCH (20:43)
[2017-06-28] MEDS: INSULIN REGULAR 100 UNIT/ML SUBCUT SCH ×5 (00:05→23:39)
[2017-06-28] MEDS: methylPREDNISolone SOD SUC 40 MG/1 ML VIAL IV SCH ×3 (02:24→18:14)
[2017-06-28] MEDS: PROPOFOL 1,000 MG/100 ML BOTTLE IV SCH ×5 (02:24→20:44)
[2017-06-28] MEDS: AMINOPHYLLINE 1,000 MG in SODIUM CHLORIDE 0.9% 460 ML IV SCH ×3 (03:30→20:44)
[2017-06-28 03:43] LABS: ABG Base Excess 2.2 MMOL/L (-2.5-2.5); ABG HCO3 25.3 MMOL/L (20-26); ABG PCO2 34.9 MM HG (35-48); ABG PH 7.478 (7.35-7.45); ABG PO2 85.7 MM HG (80-95); ABG TCO2 26.4 MMOL/L (23-27); Allen Test Positive; Pt O2 Delivery Device Ventilator
[2017-06-28 05:04] LABS: Basophils % 0.1 % (0.0-0.8); Hematocrit 44.6 VOL% (35.7-47.0); Hemoglobin 14.9 GM/DL (12.0-16.0); Immature Granulocytes % 1.1 %; Immature Granulocytes Absolute 0.15 #; Lymphocytes # 1.5 10*3/uL (1.4-4.0); Lymphocytes % 10.3 % (21.3-54.2); Mean Corpuscular HGB Conc 33.4 GM/DL (32-36); Mean Corpuscular Hemoglobin 30 PG (27-34); Mean Corpuscular Volume 88.3 FL (87-102); Mean Platelet Volume 11.3 FL (9.6-12.0); Monocytes # 0.7 10*3/uL (0.11-0.8); Neutrophils # 11.8 10*3/uL (1.4-7.4); Neutrophils % 83.5 % (38.7-73.9); Platelet Count 171 T/CUMM (130-400); Red Blood Count 5.05 MC/CUMM (3.8-5.5); Red Cell Distribution Width 13.8 % (9.3-17.3); White Blood Count 14.1 T/CUMM (4-12)
[2017-06-28 05:31] LABS: Calcium 8.7 MG/DL (8.5-10.1); Osmolality,Calculated 290.4 MOS/KG (273-304)
[2017-06-28] MEDS: LEVOTHYROXINE 175 MCG TABLET PO SCH (06:21)
[2017-06-28] MEDS: PIPERACILLIN/TAZOBACTAM 3,375 MG in SODIUM CHLORIDE 0.9% 100 ML IV SCH ×3 (08:00→23:39)
[2017-06-28] MEDS: FUROSEMIDE 40 MG/4 ML VIAL IV SCH ×2 (08:15→16:58)
[2017-06-28] MEDS: PANTOPRAZOLE 40 MG VIAL IV SCH (08:55)
[2017-06-28] MEDS: ENOXAPARIN 40 MG/0.4 ML SYRINGE SUBCUT SCH (09:03)
[2017-06-28] MEDS: DILTIAZEM 60 MG TABLET PO SCH ×3 (09:06→20:43)
[2017-06-28] MEDS: ZINC OXIDE PASTE 113 GM TUBE TOP SCH ×2 (09:07→20:43)
[2017-06-28] MEDS: LOSARTAN 50 MG TABLET PO SCH (09:07)
[2017-06-28] MEDS: APIXABAN 5 MG TABLET PO SCH ×2 (09:07→20:43)
[2017-06-28] MEDS: ATORVASTATIN 10 MG TABLET PO SCH (09:08)
[2017-06-28] MEDS: POTASSIUM CHLORIDE 20 MEQ/15 ML UDCUP PER TUBE SCH ×2 (09:08→20:43)
[2017-06-28] MEDS: hydroCHLOROthiazide 12.5 MG CAPSULE PO SCH (09:08)
[2017-06-28] MEDS: lamoTRIgine 25 MG TABLET PO SCH (09:08)
[2017-06-28] MEDS: CHOLECALCIFEROL 1,000 UNIT TABLET PO SCH (09:09)
[2017-06-28] MEDS: CETIRIZINE 10 MG TABLET PO SCH (09:09)
[2017-06-28] MEDS ORDERED: POTASSIUM CHLORIDE RIDER 10 MEQ in PREMIX 1 EACH IV PRN (10:16)
[2017-06-28] MEDS: VANCOMYCIN INJ 2,000 MG in SODIUM CHLORIDE 0.9% 500 ML IV SCH (14:15)
[2017-06-28] MEDS: POTASSIUM CHLORIDE RIDER 20 MEQ in PREMIX 1 EACH IV PRN ×2 (14:16→16:26)
[2017-06-28] MEDS: ELECTROLYTE CONCENTRATE 20 ML, TRACE ELEMENTS (5) 1 ML, MULTIVITAMIN INJ 10 ML, POTASSI... IV SCH (17:24)
[2017-06-28] MEDS: BENZTROPINE 1 MG TABLET PO SCH (20:43)
[2017-06-29] MEDS: PROPOFOL 1,000 MG/100 ML BOTTLE IV SCH ×4 (00:03→11:11)
[2017-06-29] MEDS: methylPREDNISolone SOD SUC 40 MG/1 ML VIAL IV SCH ×2 (03:00→11:07)
[2017-06-29 03:14] LABS: ABG HCO3 21.6 MMOL/L (20-26); ABG Oxygen Saturation 98.3 % (95-100); ABG PCO2 30.5 MM HG (35-48); ABG PH 7.468 (7.35-7.45); ABG TCO2 22.5 MMOL/L (23-27); Allen Test Positive; Pt O2 Delivery Device Ventilator
[2017-06-29 05:45] LABS: Basophils % 0.2 % (0.0-0.8); Hematocrit 43.5 VOL% (35.7-47.0); Hemoglobin 14.4 GM/DL (12.0-16.0); Immature Granulocytes % 2.4 %; Immature Granulocytes Absolute 0.33 #; Lymphocytes # 2.2 10*3/uL (1.4-4.0); Lymphocytes % 16.2 % (21.3-54.2); Mean Corpuscular HGB Conc 33.1 GM/DL (32-36); Mean Corpuscular Hemoglobin 30 PG (27-34); Mean Corpuscular Volume 89.3 FL (87-102); Mean Platelet Volume 11.4 FL (9.6-12.0); Monocytes % 7.3 % (1.7-12.7); Neutrophils # 10.1 10*3/uL (1.4-7.4); Neutrophils % 73.9 % (38.7-73.9); Platelet Count 181 T/CUMM (130-400); Red Blood Count 4.87 MC/CUMM (3.8-5.5); Red Cell Distribution Width 13.9 % (9.3-17.3); White Blood Count 13.7 T/CUMM (4-12)
[2017-06-29 06:20] LABS: Calcium 8.7 MG/DL (8.5-10.1); Magnesium 2.3 MG/DL (1.8-2.4); Osmolality,Calculated 307.3 MOS/KG (273-304); Potassium 4.1 MMOL/L (3.5-5.1)
[2017-06-29] MEDS: LEVOTHYROXINE 175 MCG TABLET PO SCH (06:21)
[2017-06-29] MEDS: INSULIN REGULAR 100 UNIT/ML SUBCUT SCH ×2 (06:21→11:58)
[2017-06-29 06:22] LABS: Calcium 8.8 MG/DL (8.5-10.1); Magnesium 2.4 MG/DL (1.8-2.4); Osmolality,Calculated 304.3 MOS/KG (273-304); Phosphorous 2.1 MG/DL (2.5-4.9); Potassium 4.1 MMOL/L (3.5-5.1); Prealbumin 41.5 MG/DL (20-40)
[2017-06-29] MEDS ORDERED: FUROSEMIDE 40 MG/4 ML VIAL IV SCH (09:00)
[2017-06-29] MEDS: CHOLECALCIFEROL 1,000 UNIT TABLET PO SCH (09:23)
[2017-06-29] MEDS: POTASSIUM CHLORIDE 20 MEQ/15 ML UDCUP PER TUBE SCH (09:23)
[2017-06-29] MEDS: CETIRIZINE 10 MG TABLET PO SCH (09:25)
[2017-06-29] MEDS: LOSARTAN 50 MG TABLET PO SCH (09:25)
[2017-06-29] MEDS: DILTIAZEM 60 MG TABLET PO SCH (09:26)
[2017-06-29] MEDS: APIXABAN 5 MG TABLET PO SCH (09:27)
[2017-06-29] MEDS: hydroCHLOROthiazide 12.5 MG CAPSULE PO SCH (09:27)
[2017-06-29] MEDS: ATORVASTATIN 10 MG TABLET PO SCH (09:28)
[2017-06-29] MEDS: ENOXAPARIN 40 MG/0.4 ML SYRINGE SUBCUT SCH (09:30)
[2017-06-29] MEDS: lamoTRIgine 25 MG TABLET PO SCH (09:30)
[2017-06-29] MEDS: PANTOPRAZOLE 40 MG VIAL IV SCH (09:51)
[2017-06-29] MEDS: PIPERACILLIN/TAZOBACTAM 3,375 MG in SODIUM CHLORIDE 0.9% 100 ML IV SCH (09:55)
[2017-06-29] MEDS: ZINC OXIDE PASTE 113 GM TUBE TOP SCH (11:11)
[2017-06-29] MEDS ORDERED: ceFAZolin 2,000 MG in PREMIX 1 EACH IV SCH (13:00)
[2017-06-29 15:56] VITALS: BP 172/67
== END 2017-06-29 15:40 | DRG 166 ==
LOC: EDUNIT# → EDBD → N.ED 10:46 → SUATTDRO 14:00 → N.EDINP 14:00 → N.CC 14:56
PROVIDERS: ADMIT Internal Medicine; ATTEND Internal Medicine

== ENCOUNTER 2018-04-26 10:09 | Inpatient (IN) ==
[~2018-04-26 10:09] MED LIST: MIDAZOLAM IV PRN; SODIUM CHLORIDE 0.9% IV PRN
[2018-04-26] MEDS ORDERED: methylPREDNISolone SOD SUC 125 MG/2 ML VIAL IV STA (10:20)
[2018-04-26] MEDS ORDERED: FUROSEMIDE 100 MG/10 ML VIAL IV STA (10:20)
[2018-04-26] MEDS ORDERED: SODIUM CHLORIDE 0.9% 1,000 ML IV STA (10:41)
[2018-04-26 10:51] LABS: ABG Base Excess 6.7 MMOL/L (-2.5-2.5); ABG HCO3 30.6 MMOL/L (20-26); ABG Oxygen Saturation 99.2 % (95-100); ABG PCO2 60.5 MM HG (35-48); ABG PH 7.362 (7.35-7.45); ABG TCO2 30.3 MMOL/L (23-27)
[2018-04-26 11:18] LABS: Alanine Aminotransferase 13 U/L (13-56); Albumin 2.7 G/DL (3.4-5.0); Alkaline Phosphatase 131 U/L (45-117); Aspartate Amino Transferase 14 U/L (0-37); Bilirubin,Total < 0.39 MG/DL (0.2-1.0); Blood Urea Nitrogen 15 MG/DL (7-18); Calcium 8.5 MG/DL (8.5-10.1); Glucose 81 MG/DL (74-106); Osmolality,Calculated 274.7 MOS/KG (273-304); Potassium 4.2 MMOL/L (3.5-5.1); Sodium 138 MMOL/L (136-145); Total Protein 6.5 G/DL (6.4-8.3)
[2018-04-26 11:21] LABS: Troponin I Only 0.314 NG/ML (0.00-0.045)
[2018-04-26] MEDS ORDERED: ONDANSETRON 4 MG/2 ML VIAL IV PRN (11:57)
[2018-04-26] MEDS ORDERED: ALBUTEROL 2.5 MG/3 ML NEB RESP TX PRN (11:57)
[2018-04-26] MEDS ORDERED: MORPHINE 4 MG/1 ML VIAL IV PRN (11:57)
[2018-04-26] MEDS ORDERED: GLUCAGON 1 MG VIAL IM PRN (12:06)
[2018-04-26] MEDS ORDERED: DEXTROSE 50% 25 GM/50 ML VIAL IV PRN (12:06)
[2018-04-26] MEDS ORDERED: cloNIDine 0.2 MG/24 HR PATCH TRANSDERM SCH (12:30)
[2018-04-26] MEDS: SODIUM CHLORIDE 0.9% 1,000 ML IV SCH (12:42)
[2018-04-26] MEDS: MEROPENEM 1,000 MG in SODIUM CHLORIDE 0.9% 100 ML IV SCH ×2 (12:50→20:08)
[2018-04-26] MEDS: PANTOPRAZOLE 40 MG VIAL IV SCH (12:53)
[2018-04-26] MEDS: ALBUTEROL/IPRATROPIUM 3 ML NEB RESP TX SCH ×2 (13:03→19:21)
[2018-04-26 13:09] LABS: ABG Base Excess 9.3 MMOL/L (-2.5-2.5); ABG HCO3 35.4 MMOL/L (20-26); ABG Oxygen Saturation 97.7 % (95-100); ABG PH 7.434 (7.35-7.45); ABG PO2 101.2 MM HG (80-95); Allen Test Positive; Pt O2 Delivery Device Ventilator
[2018-04-26] MEDS: lamoTRIgine 25 MG TABLET PO SCH (14:44)
[2018-04-26] MEDS: APIXABAN 5 MG TABLET PO SCH ×2 (14:44→20:08)
[2018-04-26] MEDS: LEVOFLOXACIN INJ 500 MG in PREMIX 1 EACH IV SCH (14:45)
[2018-04-26] MEDS: MIDAZOLAM 100 MG in SODIUM CHLORIDE 0.9% 80 ML IV PRN (14:51)
[2018-04-26] MEDS: INSULIN LISPRO 100 UNIT/ML SUBCUT SCH ×3 (14:57→21:46)
[2018-04-26] MEDS: FUROSEMIDE 40 MG/4 ML VIAL IV SCH (16:09)
[2018-04-26] MEDS: methylPREDNISolone SOD SUC 40 MG/1 ML VIAL IV SCH ×2 (16:11→23:48)
[2018-04-26] MEDS ORDERED: methylPREDNISolone SOD SUC 40 MG/1 ML VIAL IV SCH (23:00)
[2018-04-27] MEDS: ALBUTEROL/IPRATROPIUM 3 ML NEB RESP TX SCH ×4 (00:08→19:30)
[2018-04-27] MEDS: INSULIN LISPRO 100 UNIT/ML SUBCUT SCH ×6 (01:59→22:52)
[2018-04-27 03:26] LABS: Calcium 8.8 MG/DL (8.5-10.1); Osmolality,Calculated 280.5 MOS/KG (273-304)
[2018-04-27 03:36] LABS: Risk Ratio 3.12; VLDL CHOLESTEROL 21.8 MG/DL
[2018-04-27 04:26] LABS: ABG Base Excess 11.3 MMOL/L (-2.5-2.5); ABG HCO3 34.8 MMOL/L (20-26); ABG PCO2 41.5 MM HG (35-48); ABG PH 7.542 (7.35-7.45); ABG PO2 150.7 MM HG (80-95); ABG TCO2 36.1 MMOL/L (23-27)
[2018-04-27] MEDS: MEROPENEM 1,000 MG in SODIUM CHLORIDE 0.9% 100 ML IV SCH ×3 (05:32→20:13)
[2018-04-27] MEDS: LEVOTHYROXINE 175 MCG TABLET PO SCH (06:06)
[2018-04-27 06:54] LABS: Basophils % 0.2 % (0.0-0.8); Eosinophils % 0.1 % (0.00-10.9); Hematocrit 42.5 VOL% (35.7-47.0); Hemoglobin 13.5 GM/DL (12.0-16.0); Immature Granulocytes % 1.1 %; Immature Granulocytes Absolute 0.14 #; Lymphocytes # 2.5 10*3/uL (1.4-4.0); Lymphocytes % 20.3 % (21.3-54.2); Mean Corpuscular HGB Conc 31.8 GM/DL (32-36); Mean Corpuscular Hemoglobin 27 PG (27-34); Mean Corpuscular Volume 85.2 FL (87-102); Mean Platelet Volume 10.9 FL (9.6-12.0); Monocytes # 0.3 10*3/uL (0.11-0.8); Monocytes % 2.4 % (1.7-12.7); NRBC # 0.02 10*3/uL; Neutrophils # 9.4 10*3/uL (1.4-7.4); Neutrophils % 75.9 % (38.7-73.9); Platelet Count 185 T/CUMM (130-400); Red Blood Count 4.99 MC/CUMM (3.8-5.5); Red Cell Distribution Width 17.2 % (9.3-17.3); White Blood Count 12.4 T/CUMM (4-12)
[2018-04-27] MEDS: SODIUM CHLORIDE 0.9% 1,000 ML IV SCH (07:30)
[2018-04-27 08:11] LABS: ABG Base Excess 12.2 MMOL/L (-2.5-2.5); ABG HCO3 35.5 MMOL/L (20-26); ABG Oxygen Saturation 99.2 % (95-100); ABG PCO2 40.4 MM HG (35-48); ABG PH 7.562 (7.35-7.45); ABG PO2 194.3 MM HG (80-95); ABG TCO2 36.8 MMOL/L (23-27)
[2018-04-27] MEDS: FUROSEMIDE 40 MG/4 ML VIAL IV SCH ×2 (08:17→16:49)
[2018-04-27] MEDS ORDERED: MAGNESIUM SULF RIDER 2 GM in PREMIX 1 EACH IV ONE (08:17)
[2018-04-27] MEDS: methylPREDNISolone SOD SUC 40 MG/1 ML VIAL IV SCH ×3 (08:20→22:52)
[2018-04-27] MEDS: lamoTRIgine 25 MG TABLET PO SCH (08:28)
[2018-04-27] MEDS: APIXABAN 5 MG TABLET PO SCH ×2 (08:29→20:13)
[2018-04-27] MEDS: POTASSIUM CHLORIDE 20 MEQ/15 ML UDCUP PER TUBE SCH ×4 (08:44→20:13)
[2018-04-27] MEDS: acetaZOLAMIDE 250 MG TABLET PER TUBE SCH ×2 (08:45→20:13)
[2018-04-27 12:17] LABS: Amorphous Crystals,Urine Occasional /HPF (Few); Apearance,Urine CLOUDY (Clear); Bilirubin,Urine Negative (Negative); Blood, Urine Negative (Negative); Glucose,Urine (UA) Negative (Negative); Ketones,Urine Negative (Negative); Nitrite,Urine Negative (Negative); Protein,Urine Negative; Urine Color Yellow (Yellow); Urine Urobilinogen < 2.0 EU/DL (0.2-1.0)
[2018-04-27] MEDS: PANTOPRAZOLE 40 MG VIAL IV SCH (13:12)
[2018-04-27] MEDS: LEVOFLOXACIN INJ 500 MG in PREMIX 1 EACH IV SCH (13:58)
[2018-04-27] MEDS: MIDAZOLAM 100 MG in SODIUM CHLORIDE 0.9% 80 ML IV PRN (17:01)
[2018-04-28] MEDS: ALBUTEROL/IPRATROPIUM 3 ML NEB RESP TX SCH ×4 (00:20→19:13)
[2018-04-28] MEDS: INSULIN LISPRO 100 UNIT/ML SUBCUT SCH ×6 (02:12→20:21)
[2018-04-28 02:58] LABS: Basophils % 0.1 % (0.0-0.8); Hematocrit 39.7 VOL% (35.7-47.0); Hemoglobin 12.8 GM/DL (12.0-16.0); Immature Granulocytes % 0.8 %; Lymphocytes # 1.2 10*3/uL (1.4-4.0); Lymphocytes % 9.6 % (21.3-54.2); Mean Corpuscular HGB Conc 32.2 GM/DL (32-36); Mean Corpuscular Hemoglobin 27 PG (27-34); Mean Corpuscular Volume 83.4 FL (87-102); Mean Platelet Volume 10.6 FL (9.6-12.0); Monocytes # 0.4 10*3/uL (0.11-0.8); Monocytes % 3.3 % (1.7-12.7); Neutrophils # 11.1 10*3/uL (1.4-7.4); Neutrophils % 86.2 % (38.7-73.9); Platelet Count 181 T/CUMM (130-400); Red Blood Count 4.76 MC/CUMM (3.8-5.5); Red Cell Distribution Width 17.2 % (9.3-17.3); White Blood Count 12.9 T/CUMM (4-12)
[2018-04-28 03:38] LABS: Calcium 8.9 MG/DL (8.5-10.1); Osmolality,Calculated 289.3 MOS/KG (273-304); Potassium 3.1 MMOL/L (3.5-5.1)
[2018-04-28 04:00] LABS: ABG HCO3 29.9 MMOL/L (20-26); ABG Oxygen Saturation 99.1 % (95-100); ABG PCO2 37.9 MM HG (35-48); ABG PH 7.499 (7.35-7.45); ABG TCO2 25.5 MMOL/L (23-27)
[2018-04-28] MEDS: SODIUM CHLORIDE 0.9% 1,000 ML IV SCH (04:53)
[2018-04-28] MEDS: MEROPENEM 1,000 MG in SODIUM CHLORIDE 0.9% 100 ML IV SCH ×3 (06:04→20:32)
[2018-04-28] MEDS: LEVOTHYROXINE 175 MCG TABLET PO SCH (06:04)
[2018-04-28] MEDS ORDERED: INSULIN LISPRO 100 UNIT/ML SUBCUT SCH (07:30)
[2018-04-28] MEDS: methylPREDNISolone SOD SUC 40 MG/1 ML VIAL IV SCH ×2 (08:29→16:33)
[2018-04-28] MEDS: FUROSEMIDE 40 MG/4 ML VIAL IV SCH ×2 (08:29→16:33)
[2018-04-28] MEDS: POTASSIUM CHLORIDE 20 MEQ/15 ML UDCUP PER TUBE SCH ×4 (08:30→20:21)
[2018-04-28] MEDS: acetaZOLAMIDE 250 MG TABLET PER TUBE SCH ×2 (08:30→20:21)
[2018-04-28] MEDS: lamoTRIgine 25 MG TABLET PO SCH (08:30)
[2018-04-28] MEDS: APIXABAN 5 MG TABLET PO SCH ×2 (08:30→20:21)
[2018-04-28] MEDS: PANTOPRAZOLE 40 MG VIAL IV SCH (12:52)
[2018-04-28] MEDS: MIDAZOLAM 100 MG in SODIUM CHLORIDE 0.9% 80 ML IV PRN (14:07)
[2018-04-28] MEDS: LEVOFLOXACIN INJ 500 MG in PREMIX 1 EACH IV SCH (14:38)
[2018-04-29] MEDS: methylPREDNISolone SOD SUC 40 MG/1 ML VIAL IV SCH ×3 (00:15→16:47)
[2018-04-29] MEDS: POTASSIUM CHLORIDE 20 MEQ/15 ML UDCUP PER TUBE SCH (00:17)
[2018-04-29] MEDS: INSULIN LISPRO 100 UNIT/ML SUBCUT SCH ×6 (00:17→20:38)
[2018-04-29] MEDS: ALBUTEROL/IPRATROPIUM 3 ML NEB RESP TX SCH ×4 (00:40→19:59)
[2018-04-29 03:07] LABS: ABG Base Excess 1.8 MMOL/L (-2.5-2.5); ABG Oxygen Saturation 98.7 % (95-100); ABG PCO2 38.8 MM HG (35-48); ABG PH 7.434 (7.35-7.45); ABG TCO2 22.4 MMOL/L (23-27); Allen Test Positive; Pt O2 Delivery Device Ventilator
[2018-04-29] MEDS: MIDAZOLAM 100 MG in SODIUM CHLORIDE 0.9% 80 ML IV PRN (05:32)
[2018-04-29] MEDS: LEVOTHYROXINE 175 MCG TABLET PO SCH (06:12)
[2018-04-29] MEDS: MEROPENEM 1,000 MG in SODIUM CHLORIDE 0.9% 100 ML IV SCH ×3 (06:12→20:38)
[2018-04-29 06:18] LABS: Calcium 9.2 MG/DL (8.5-10.1); Osmolality,Calculated 293.1 MOS/KG (273-304); Potassium 3.4 MMOL/L (3.5-5.1)
[2018-04-29] MEDS: acetaZOLAMIDE 250 MG TABLET PER TUBE SCH ×2 (08:37→20:35)
[2018-04-29] MEDS: lamoTRIgine 25 MG TABLET PO SCH (08:37)
[2018-04-29] MEDS: APIXABAN 5 MG TABLET PO SCH ×2 (08:37→20:35)
[2018-04-29] MEDS: FUROSEMIDE 40 MG/4 ML VIAL IV SCH ×2 (08:37→16:46)
[2018-04-29] MEDS: PANTOPRAZOLE 40 MG VIAL IV SCH (12:40)
[2018-04-29] MEDS: POTASSIUM CHLORIDE 20 MEQ TABLET PO SCH ×3 (14:21→20:38)
[2018-04-29] MEDS: LEVOFLOXACIN INJ 500 MG in PREMIX 1 EACH IV SCH (14:21)
[2018-04-30] MEDS: ALBUTEROL/IPRATROPIUM 3 ML NEB RESP TX SCH ×3 (00:39→13:09)
[2018-04-30] MEDS: methylPREDNISolone SOD SUC 40 MG/1 ML VIAL IV SCH ×2 (01:30→08:44)
[2018-04-30] MEDS: INSULIN LISPRO 100 UNIT/ML SUBCUT SCH ×4 (01:37→11:57)
[2018-04-30] MEDS: MEROPENEM 1,000 MG in SODIUM CHLORIDE 0.9% 100 ML IV SCH ×2 (04:55→14:06)
[2018-04-30] MEDS: LEVOTHYROXINE 175 MCG TABLET PO SCH (06:06)
[2018-04-30 06:17] VITALS: BP 155/67
[2018-04-30 07:41] LABS: Calcium 8.7 MG/DL (8.5-10.1); Osmolality,Calculated 294.1 MOS/KG (273-304)
[2018-04-30] MEDS: FUROSEMIDE 40 MG/4 ML VIAL IV SCH (08:44)
[2018-04-30] MEDS: acetaZOLAMIDE 250 MG TABLET PER TUBE SCH (08:45)
[2018-04-30] MEDS: APIXABAN 5 MG TABLET PO SCH (08:45)
[2018-04-30] MEDS: lamoTRIgine 25 MG TABLET PO SCH (08:45)
[2018-04-30] MEDS ORDERED: FUROSEMIDE 40 MG TABLET PO SCH (09:00)
[2018-04-30] MEDS: PRAMIPEXOLE 0.25 MG TABLET PO SCH ×2 (09:41→09:42)
[2018-04-30] MEDS ORDERED: methylPREDNISolone SOD SUC 40 MG/1 ML VIAL IV SCH (11:00)
[2018-04-30] MEDS: PANTOPRAZOLE 40 MG VIAL IV SCH (11:48)
[2018-04-30] MEDS: LEVOFLOXACIN INJ 500 MG in PREMIX 1 EACH IV SCH (14:07)
== END 2018-04-30 15:25 | DRG 208 ==
LOC: EDUNIT# → EDBD → N.ED 10:09 → N.EDINP 10:47 → N.CC 11:42
PROVIDERS: ADMIT Internal Medicine; ATTEND Internal Medicine

== ENCOUNTER 2019-11-02 08:27 | Observation (INO) ==
[2019-11-02] MEDS ORDERED: DOCUSATE SODIUM 100 MG CAPSULE PO PRN (09:26)
[2019-11-02] MEDS ORDERED: PROMETHAZINE 25 MG TABLET PO PRN (09:26)
[2019-11-02] MEDS ORDERED: diphenhydrAMINE CAP 25 MG CAPSULE PO PRN (09:26)
[2019-11-02] MEDS ORDERED: MAGNESIUM SULF RIDER 2 GM in PREMIX 1 EACH IV PRN (09:26)
[2019-11-02] MEDS ORDERED: ACETAMINOPHEN 325 MG TABLET PO PRN (09:26)
[2019-11-02] MEDS ORDERED: ONDANSETRON 4 MG/2 ML VIAL IV PRN (09:26)
[2019-11-02] MEDS ORDERED: ALUMINUM/MAGNES/SIMETH MAX STR 30 ML UDCUP PO PRN (09:26)
[2019-11-02] MEDS ORDERED: ZALEPLON 5 MG CAPSULE PO PRN (09:26)
[2019-11-02] MEDS ORDERED: LACTULOSE 20 GM/30 ML UDCUP PO PRN (09:26)
[2019-11-02] MEDS ORDERED: POTASSIUM CHLORIDE 20 MEQ TABLET PO PRN (09:26)
[2019-11-02] MEDS ORDERED: MAGNESIUM SULF RIDER 4 GM in PREMIX 1 EACH IV PRN (09:26)
[2019-11-02 09:59] LABS: Basophils # 0.1 10*3/uL (0.0-0.2); Basophils % 0.7 % (0.0-0.8); Eosinophils # 0.3 10*3/uL (0.0-0.87); Eosinophils % 2.6 % (0.00-10.9); Hematocrit 37.9 VOL% (35.7-47.0); Hemoglobin 11.8 GM/DL (12.0-16.0); Immature Granulocytes % 0.5 %; Immature Granulocytes Absolute 0.06 #; Lymphocytes % 32.6 % (21.3-54.2); Mean Corpuscular HGB Conc 31.1 GM/DL (32-36); Mean Platelet Volume 9.4 FL (9.6-12.0); Monocytes % 6.6 % (1.7-12.7); Platelet Count 226 T/CUMM (130-400); Red Blood Count 4.74 MC/CUMM (3.8-5.5); Red Cell Distribution Width 17.3 % (9.3-17.3); White Blood Count 12.2 T/CUMM (4-12)
[2019-11-02 10:23] LABS: Alanine Aminotransferase < 9 U/L (13-56); Albumin 3.1 G/DL (3.4-5.0); Alkaline Phosphatase 154 U/L (45-117); Aspartate Amino Transferase 9 U/L (0-37); Bilirubin,Total < 0.39 MG/DL (0.2-1.0); Blood Urea Nitrogen 24 MG/DL (7-18); Estimated Glom Filtration Rate 79 ML/MIN; Glucose 77 MG/DL (74-106); Osmolality,Calculated 264.7 MOS/KG (273-304); Total Protein 7.3 G/DL (6.4-8.3)
[2019-11-02 10:25] LABS: Amorphous Crystals,Urine Occasional /HPF (Few); Apearance,Urine CLOUDY (Clear); Bacteria,Urine Many /HPF (Few); Bilirubin,Urine Negative (Negative); Blood, Urine Negative (Negative); Glucose,Urine (UA) Negative (Negative); Ketones,Urine Negative (Negative); Mucus,Urine Occasional /LPF (Occasional); Nitrite,Urine Positive (Negative); Protein,Urine Negative; Urine Color Yellow (Yellow); Urine Specific Gravity 1.009 (1.001-1.035); Urine Urobilinogen < 2.0 EU/DL (0.2-1.0); WBC,Urine 32 /HPF (0-6)
[2019-11-02] MEDS: cefTRIAXone 1,000 MG in SYRINGE 1 EACH IV SCH (18:10)
[2019-11-03 07:07] LABS: Basophils # 0.1 10*3/uL (0.0-0.2); Basophils % 0.7 % (0.0-0.8); Eosinophils # 0.3 10*3/uL (0.0-0.87); Eosinophils % 2.8 % (0.00-10.9); Hematocrit 36.5 VOL% (35.7-47.0); Hemoglobin 11.3 GM/DL (12.0-16.0); Immature Granulocytes % 0.5 %; Immature Granulocytes Absolute 0.06 #; Lymphocytes # 3.7 10*3/uL (1.4-4.0); Lymphocytes % 30.1 % (21.3-54.2); Mean Corpuscular Volume 80.6 FL (87-102); Mean Platelet Volume 9.3 FL (9.6-12.0); Monocytes % 7.2 % (1.7-12.7); Neutrophils % 58.7 % (38.7-73.9); Platelet Count 218 T/CUMM (130-400); Red Blood Count 4.53 MC/CUMM (3.8-5.5); Red Cell Distribution Width 17.2 % (9.3-17.3); White Blood Count 12.2 T/CUMM (4-12)
[2019-11-03] MEDS ORDERED: LIDOCAINE 1% 20 ML VIAL ONE (07:29)
[2019-11-03] MEDS ORDERED: ceFAZolin 1,000 MG VIAL ONE (07:29)
[2019-11-03 07:34] LABS: Calcium 9.2 MG/DL (8.5-10.1); Osmolality,Calculated 262.7 MOS/KG (273-304)
[2019-11-03] MEDS ORDERED: LORazepam 0.5 MG TABLET PO PRN (08:06)
[2019-11-03] MEDS ORDERED: ALBUTEROL 2.5 MG/3 ML NEB RESP TX PRN (08:06)
[2019-11-03] MEDS ORDERED: TISSUE ADHESIVE 1 EACH APPLICATOR TOP ONE (08:45)
[2019-11-03] MEDS ORDERED: PANTOPRAZOLE 40 MG TABLET PO SCH (09:00)
[2019-11-03] MEDS ORDERED: ASENAPINE MALEATE 10 MG SL SCH (09:00)
[2019-11-03] MEDS ORDERED: fentaNYL 100 MCG/2 ML VIAL ONE (09:28)
[2019-11-03] MEDS ORDERED: LIDOCAINE 2% 5 ML VIAL ONE (09:28)
[2019-11-03] MEDS ORDERED: MIDAZOLAM 2 MG/2 ML VIAL ONE (09:28)
[2019-11-03] MEDS ORDERED: propofoL 200 MG/20 ML VIAL IV ONE (09:28)
[2019-11-03] MEDS: ZINC OXIDE PASTE 113 GM TUBE TOP SCH ×2 (10:34→22:36)
[2019-11-03] MEDS: POTASSIUM CHLORIDE 20 MEQ TABLET PO SCH (10:34)
[2019-11-03] MEDS: BUDESONIDE/FORMOTEROL 160-4.5 INHALER 6 GM INH SCH ×2 (10:34→22:36)
[2019-11-03] MEDS: SPIRONOLACTONE 25 MG TABLET PO SCH ×2 (10:35→22:35)
[2019-11-03] MEDS: ATORVASTATIN 10 MG TABLET PO SCH (10:35)
[2019-11-03] MEDS: FUROSEMIDE 40 MG TABLET PO SCH (10:35)
[2019-11-03] MEDS: PANTOPRAZOLE 40 MG TABLET PO SCH (10:35)
[2019-11-03] MEDS: GABAPENTIN 100 MG CAPSULE PO SCH ×3 (10:35→22:33)
[2019-11-03] MEDS: buPROPion SR 150 MG TABLET PO SCH (10:36)
[2019-11-03] MEDS: clonazePAM 0.5 MG TABLET PO SCH ×2 (10:36→22:35)
[2019-11-03] MEDS: LORATADINE 10 MG TABLET PO SCH (10:36)
[2019-11-03] MEDS: MONTELUKAST 10 MG TABLET PO SCH (10:36)
[2019-11-03] MEDS: TAMSULOSIN 0.4 MG CAPSULE PO SCH (10:37)
[2019-11-03] MEDS: BACLOFEN 10 MG TABLET PO SCH ×3 (10:37→22:33)
[2019-11-03] MEDS ORDERED: KETOROLAC 30 MG/1 ML VIAL IV ONE (12:07)
[2019-11-03] MEDS: cefTRIAXone 1,000 MG in SYRINGE 1 EACH IV SCH (18:17)
[2019-11-03] MEDS ORDERED: lamoTRIgine 25 MG TABLET PO SCH (21:00)
[2019-11-03] MEDS ORDERED: PRAMIPEXOLE 0.25 MG TABLET PO SCH (21:00)
[2019-11-04 05:58] LABS: Calcium 8.8 MG/DL (8.5-10.1); Osmolality,Calculated 262.7 MOS/KG (273-304)
[2019-11-04] MEDS ORDERED: LEVOTHYROXINE 175 MCG TABLET PO SCH (07:00)
[2019-11-04] MEDS: clonazePAM 0.5 MG TABLET PO SCH (09:04)
[2019-11-04] MEDS: POTASSIUM CHLORIDE 20 MEQ TABLET PO SCH (09:05)
[2019-11-04] MEDS: SPIRONOLACTONE 25 MG TABLET PO SCH (09:05)
[2019-11-04] MEDS: LORATADINE 10 MG TABLET PO SCH (09:05)
[2019-11-04] MEDS: MONTELUKAST 10 MG TABLET PO SCH (09:05)
[2019-11-04] MEDS: BUDESONIDE/FORMOTEROL 160-4.5 INHALER 6 GM INH SCH (09:06)
[2019-11-04] MEDS: TAMSULOSIN 0.4 MG CAPSULE PO SCH (09:06)
[2019-11-04] MEDS: BACLOFEN 10 MG TABLET PO SCH (09:06)
[2019-11-04] MEDS: GABAPENTIN 100 MG CAPSULE PO SCH (09:06)
[2019-11-04] MEDS: FUROSEMIDE 40 MG TABLET PO SCH (09:06)
[2019-11-04] MEDS: buPROPion SR 150 MG TABLET PO SCH (09:06)
[2019-11-04] MEDS: PANTOPRAZOLE 40 MG TABLET PO SCH (09:06)
[2019-11-04] MEDS: ATORVASTATIN 10 MG TABLET PO SCH (09:06)
[2019-11-04] MEDS: ZINC OXIDE PASTE 113 GM TUBE TOP SCH (09:07)
[2019-11-04 11:32] VITALS: BP 139/63
== END 2019-11-04 14:36 | disposition home or self-care (01) ==
LOC: N.TELES 08:27 → INTOOBSV 08:27 → EDSTATUS 11-03 07:30
PROVIDERS: ADMIT Internal Medicine Cardiovascular Disease; ATTEND Internal Medicine Cardiovascular Disease

== ENCOUNTER 2021-02-06 15:09 | Inpatient (IN) ==
[2021-02-06] MEDS ORDERED: ALUMINUM/MAGNES/SIMETH MAX STR 30 ML UDCUP PO PRN (19:23)
[2021-02-06] MEDS ORDERED: guaiFENesin/DM ER 600-30 MG TABLET PO PRN (19:23)
[2021-02-06] MEDS ORDERED: DOCUSATE SODIUM 100 MG CAPSULE PO PRN (19:23)
[2021-02-06] MEDS ORDERED: ONDANSETRON 4 MG/2 ML VIAL IV PRN (19:23)
[2021-02-06] MEDS ORDERED: ACETAMINOPHEN 325 MG TABLET PO PRN (19:23)
[2021-02-06] MEDS ORDERED: DEXTROSE 50% 25 GM/50 ML VIAL IV PRN (19:23)
[2021-02-06] MEDS ORDERED: GLUCAGON 1 MG VIAL IM PRN (19:23)
[2021-02-06] MEDS ORDERED: ENOXAPARIN 40 MG/0.4 ML SYRINGE SUBCUT SCH (19:30)
[2021-02-06] MEDS ORDERED: ALBUTEROL 2.5 MG/3 ML NEB RESP TX PRN (19:30)
[2021-02-06] MEDS ORDERED: LOPERAMIDE 2 MG CAPSULE PO PRN (19:59)
[2021-02-06] MEDS ORDERED: ENOXAPARIN 40 MG/0.4 ML SYRINGE SUBCUT ONE (21:00)
[2021-02-06] MEDS ORDERED: PROMETHAZINE 25 MG TABLET PO SCH (22:00)
[2021-02-06] MEDS: APIXABAN 5 MG TABLET PO SCH (22:10)
[2021-02-06] MEDS: BACLOFEN 10 MG TABLET PO SCH (22:10)
[2021-02-06] MEDS: PRAMIPEXOLE 0.25 MG TABLET PO SCH (22:10)
[2021-02-06] MEDS: QUEtiapine 25 MG TABLET PO SCH (22:10)
[2021-02-06] MEDS: clonazePAM 0.5 MG TABLET PO SCH (22:10)
[2021-02-06] MEDS: INSULIN REGULAR 100 UNIT/ML SUBCUT SCH (22:11)
[2021-02-06] MEDS: BUDESONIDE/FORMOTEROL 160-4.5 INHALER 6 GM INH SCH (22:11)
[2021-02-06] MEDS: ATORVASTATIN 10 MG TABLET PO SCH (22:11)
[2021-02-07] MEDS: ALBUTEROL/IPRATROPIUM 3 ML NEB RESP TX SCH ×4 (00:12→19:00)
[2021-02-07 00:19] VITALS: BP 132/68
[2021-02-07 02:34] LABS: ABG Base Excess 16.2 MMOL/L (-2.5-2.5); ABG HCO3 46.3 MMOL/L (20-26); ABG Oxygen Saturation 92.4 % (95-100); ABG PH 7.315 (7.35-7.45); ABG PO2 67.4 MM HG (80-95); ABG TCO2 49.2 MMOL/L (23-27)
[2021-02-07] MEDS ORDERED: PROMETHAZINE 25 MG TABLET PO PRN (04:11)
[2021-02-07 04:28] LABS: Bacteria,Urine Many /HPF (Few); Bilirubin,Urine Negative (Negative); Blood, Urine Small mg/dL (Negative); Glucose,Urine (UA) Negative (Negative); Hyaline Casts,Urine 11 /LPF (0-3); Ketones,Urine Negative (Negative); Mucus,Urine Occasional /LPF (Occasional); Nitrite,Urine Negative (Negative); Protein,Urine Negative; RBC,Urine 4 /HPF (0-4); Squamous Epithelial Cell,Urine Occasional /HPF (0-10); Urine Appearance Slightly Hazy (Clear); Urine Color Yellow (Yellow); Urine Specific Gravity 1.011 (1.001-1.035); Urine Urobilinogen < 2.0 EU/DL (0.2-1.0)
[2021-02-07 04:46] LABS: ABG Base Excess 15.4 MMOL/L (-2.5-2.5); ABG HCO3 39.3 MMOL/L (20-26); ABG Oxygen Saturation 92.4 % (95-100); ABG PH 7.315 (7.35-7.45); ABG PO2 66.3 MM HG (80-95); ABG TCO2 41.8 MMOL/L (23-27); Allen Test Positive; Pt O2 Delivery Device BIPAP
[2021-02-07 04:54] LABS: ABG PCO2 91.1 MM HG (35-48)
[2021-02-07] MEDS ORDERED: ETOMIDATE 20 MG/10 ML VIAL IV ONE ×2 (04:59→05:06)
[2021-02-07] MEDS ORDERED: ROCURONIUM 100 MG/10 ML VIAL IV ONE ×2 (04:59→05:06)
[2021-02-07 06:26] LABS: ABG Base Excess 16.5 MMOL/L (-2.5-2.5); ABG HCO3 40.4 MMOL/L (20-26); ABG Oxygen Saturation 90.4 % (95-100); ABG PCO2 48.2 MM HG (35-48); ABG PH 7.545 (7.35-7.45)
[2021-02-07] MEDS ORDERED: LEVOTHYROXINE 175 MCG TABLET PO SCH (07:00)
[2021-02-07 07:04] LABS: Basophils # 0.1 10*3/uL (0.0-0.2); Basophils % 0.4 % (0.0-0.8); Eosinophils # 0.1 10*3/uL (0.0-0.87); Eosinophils % 0.8 % (0.00-10.9); Hematocrit 39.9 VOL% (35.7-47.0); Hemoglobin 12.1 GM/DL (12.0-16.0); Immature Granulocytes % 0.5 %; Immature Granulocytes Absolute 0.06 #; Lymphocytes # 3.5 10*3/uL (1.4-4.0); Lymphocytes % 29.3 % (21.3-54.2); Mean Corpuscular HGB Conc 30.3 GM/DL (32-36); Mean Corpuscular Volume 90.7 FL (87-102); Mean Platelet Volume 10.5 FL (9.6-12.0); Monocytes % 7.6 % (1.7-12.7); NRBC # 0.14 10*3/uL; Neutrophils % 61.4 % (38.7-73.9); Platelet Count 139 T/CUMM (130-400); Red Cell Distribution Width 16.7 % (9.3-17.3)
[2021-02-07 07:16] LABS: Osmolality,Calculated 275.8 MOS/KG (273-304); Potassium 5.6 MMOL/L (3.5-5.1); Thyroid Stimulating Hormone 3.21 uIU/ml (0.358-3.74)
[2021-02-07 07:37] LABS: Hypochromasia 1+; Microcytosis 1+
[2021-02-07] MEDS: INSULIN REGULAR 100 UNIT/ML SUBCUT SCH ×3 (07:49→16:21)
[2021-02-07] MEDS: BACLOFEN 10 MG TABLET PO SCH ×2 (08:51→21:12)
[2021-02-07] MEDS: APIXABAN 5 MG TABLET PO SCH ×2 (08:51→21:12)
[2021-02-07] MEDS: FUROSEMIDE 80 MG TABLET PO SCH ×2 (08:52→16:21)
[2021-02-07] MEDS: clonazePAM 0.5 MG TABLET PO SCH ×2 (08:52→20:47)
[2021-02-07] MEDS: QUEtiapine 25 MG TABLET PO SCH ×3 (08:52→20:47)
[2021-02-07] MEDS ORDERED: LORATADINE 10 MG TABLET PO SCH (09:00)
[2021-02-07] MEDS ORDERED: PANTOPRAZOLE 40 MG VIAL IV SCH (09:00)
[2021-02-07] MEDS ORDERED: lamoTRIgine 100 MG TABLET PO SCH (09:00)
[2021-02-07] MEDS ORDERED: POTASSIUM CHLORIDE 20 MEQ TABLET PO SCH (09:00)
[2021-02-07] MEDS ORDERED: TAMSULOSIN 0.4 MG CAPSULE PO SCH (09:00)
[2021-02-07] MEDS: BUDESONIDE/FORMOTEROL 160-4.5 INHALER 6 GM INH SCH ×2 (09:34→20:47)
[2021-02-07] MEDS: methylPREDNISolone SOD SUC 40 MG/1 ML VIAL IV SCH ×2 (11:54→17:01)
[2021-02-07] MEDS: METOPROLOL TARTRATE 25 MG TABLET PO SCH ×2 (13:06→20:47)
[2021-02-07] MEDS ORDERED: AMIODARONE 450 MG/9 ML VIAL IV ONE (13:35)
[2021-02-07] MEDS ORDERED: AMIODARONE INJ 450 MG in DEXTROSE 5% 241 ML IV SCH ×2 (14:30→20:30)
[2021-02-07 17:16] LABS: Albumin 2.9 G/DL (3.4-5.0); Bilirubin,Total 0.9 MG/DL (0.2-1.0); Calcium 8.9 MG/DL (8.5-10.1); Osmolality,Calculated 279.8 MOS/KG (273-304); Potassium 3.3 MMOL/L (3.5-5.1); Total Protein 7.3 G/DL (6.4-8.2)
[2021-02-07] MEDS ORDERED: POTASSIUM CHLORIDE RIDER 10 MEQ/100 ML PREMIX IV PRN (19:39)
[2021-02-07] MEDS: POTASSIUM CHLORIDE RIDER 20 MEQ/100 ML PREMIX IV PRN ×2 (19:50→21:55)
[2021-02-07 20:35] LABS: ABG Base Excess 14.1 MMOL/L (-2.5-2.5); ABG HCO3 35.9 MMOL/L (20-26); ABG Oxygen Saturation 98.3 % (95-100); ABG PCO2 34.5 MM HG (35-48); ABG TCO2 36.9 MMOL/L (23-27)
[2021-02-07 20:40] LABS: ABG PH 7.635 (7.35-7.45)
[2021-02-07] MEDS: ATORVASTATIN 10 MG TABLET PO SCH (21:12)
[2021-02-07] MEDS: PRAMIPEXOLE 0.25 MG TABLET PO SCH (21:13)
[2021-02-08] MEDS ORDERED: INSULIN REGULAR 100 UNIT/ML SUBCUT SCH
[2021-02-08] MEDS: ALBUTEROL/IPRATROPIUM 3 ML NEB RESP TX SCH (00:56)
[2021-02-08] MEDS: methylPREDNISolone SOD SUC 40 MG/1 ML VIAL IV SCH (01:06)
[2021-02-08] MEDS: POTASSIUM CHLORIDE RIDER 20 MEQ/100 ML PREMIX IV PRN (01:34)
[2021-02-08 03:58] LABS: Basophils % 0.1 % (0.0-0.8); Hematocrit 36.6 VOL% (35.7-47.0); Hemoglobin 11.3 GM/DL (12.0-16.0); Immature Granulocytes % 0.7 %; Immature Granulocytes Absolute 0.08 #; Lymphocytes # 1.7 10*3/uL (1.4-4.0); Lymphocytes % 15.8 % (21.3-54.2); Mean Corpuscular HGB Conc 30.9 GM/DL (32-36); Mean Corpuscular Volume 87.6 FL (87-102); Mean Platelet Volume 9.9 FL (9.6-12.0); Monocytes % 4.4 % (1.7-12.7); NRBC # 0.02 10*3/uL; Platelet Count 184 T/CUMM (130-400); Red Blood Count 4.18 MC/CUMM (3.8-5.5); Red Cell Distribution Width 16.7 % (9.3-17.3); White Blood Count 10.8 T/CUMM (4-12)
[2021-02-08 03:59] LABS: ABG Base Excess 11.8 MMOL/L (-2.5-2.5); ABG HCO3 35.7 MMOL/L (20-26); ABG Oxygen Saturation 99.5 % (95-100); ABG PCO2 40.4 MM HG (35-48); ABG PH 7.551 (7.35-7.45); ABG TCO2 31.5 MMOL/L (23-27)
[2021-02-08 04:16] LABS: Albumin 2.8 G/DL (3.4-5.0); Bilirubin,Total 0.7 MG/DL (0.2-1.0); Osmolality,Calculated 281.8 MOS/KG (273-304); Potassium 3.3 MMOL/L (3.5-5.1); Total Protein 6.9 G/DL (6.4-8.2)
== END 2021-02-08 04:40 | disposition expired | DRG 308 ==
LOC: N.TELES → SUATTDRO 17:15 → N.CC 02-07 03:07
PROVIDERS: ADMIT Internal Medicine; ATTEND Internal Medicine